=== PATIENT | male | born 1960 | race Two or more races ===

== ENCOUNTER 2018-07-09 22:56 | Emergency (ER) | payer BC ==
[~2018-07-09] VITALS: Ht 167.6 cm; Wt 132.4 kg
[2018-07-09 23:31] LABS: Basophils # (auto) 0.1 uL; Basophils % (auto) 0.8 % (0.0-2.0); Eosinophils # (auto) 0.1 uL; Eosinophils % (auto) 1.8 % (0.0-7.0); Hematocrit 40.9 % (41.0-53.0); Hemoglobin 14.1 g/dL (13.5-17.5); Lymphocytes # (auto) 1.7 uL; Lymphocytes % (auto) 23.7 % (10.0-50.0); Mean Corpuscular Hemoglobin 30.8 pg (28.0-32.0); Mean Corpuscular Hgb Conc. 34.4 g/dL (32.0-36.0); Mean Corpuscular Volume 89.7 fL (80.0-100.0); Monocytes # (auto) 0.5 uL; Monocytes % (auto) 7.2 % (0.0-12.0); Neutrophils # (auto) 4.8 uL; Neutrophils % (auto) 66.5 % (37.0-80.0); Platelet Count (auto) 186 10^3/uL (140-450); Red Blood Cells 4.57 10^6/uL (4.5-5.90); Red Cell Distribution Width 13.6 % (11.8-14.3); White Blood Cell 7.3 10^3/uL (4.4-10.8)
[2018-07-10 00:01] LABS: Alanine Aminotransferase 60 U/L (16-61); Albumin 3.5 g/dL (3.4-5.0); Anion Gap 5 (5-15); Aspartate Aminotransferase 36 U/L (15-37); Blood Urea Nitrogen 18 mg/dL (7-18); Calcium 8.8 mg/dL (8.5-10.1); Carbon Dioxide 27 mmol/L (21-32); Chloride 108 mmol/L (98-107); GFR African American > 60 mL/min; GFR Non-African American > 60 mL/min; Glucose 118 mg/dL (74-106); Potassium 3.7 mmol/L (3.5-5.1); Sodium 140 mmol/L (136-145)
[2018-07-10 00:04] LABS: Alkaline Phosphatase 149 U/L (45-117); Bilirubin, Total 0.5 mg/dL (0.2-1.0); Total Protein 7.2 g/dL (6.4-8.2)
[2018-07-10 03:00] VITALS: BP 153/91
== END 2018-07-10 03:16 | disposition home or self-care (01) ==
LOC: ER 23:00
DX: L72.3 Sebaceous cyst (principal); E11.9 Type 2 diabetes mellitus without complications
CPT/HCPCS: 36415; 74176; 80053; 83036; 85025

== ENCOUNTER → 2018-07-13 | Outpatient (CLI) | payer BC ==
[2018-07-13 13:43] LABS: Basophils # (auto) 0 uL; Basophils % (auto) 0.6 % (0.0-2.0); Eosinophils # (auto) 0.1 uL; Hematocrit 41.8 % (41.0-53.0); Hemoglobin 14.5 g/dL (13.5-17.5); Lymphocytes # (auto) 1.5 uL; Lymphocytes % (auto) 21.4 % (10.0-50.0); Mean Corpuscular Hemoglobin 31.2 pg (28.0-32.0); Mean Corpuscular Hgb Conc. 34.7 g/dL (32.0-36.0); Mean Corpuscular Volume 89.8 fL (80.0-100.0); Monocytes # (auto) 0.4 uL; Monocytes % (auto) 5.7 % (0.0-12.0); Neutrophils # (auto) 4.9 uL; Neutrophils % (auto) 70.3 % (37.0-80.0); Nucleated Red Blood Cells % 0.1 %; Platelet Count (auto) 178 10^3/uL (140-450); Red Blood Cells 4.65 10^6/uL (4.5-5.90); Red Cell Distribution Width 14.1 % (11.8-14.3); White Blood Cell 6.9 10^3/uL (4.4-10.8)
[2018-07-13 14:12] LABS: Albumin 3.7 g/dL (3.4-5.0); Anion Gap 3 (5-15); Calcium 9.3 mg/dL (8.5-10.1); Carbon Dioxide 27 mmol/L (21-32); Chloride 109 mmol/L (98-107); Glucose 97 mg/dL (74-106); Potassium 3.8 mmol/L (3.5-5.1); Sodium 139 mmol/L (136-145)
[2018-07-13 14:19] LABS: Alanine Aminotransferase 64 U/L (16-61); Alkaline Phosphatase 128 U/L (45-117); Aspartate Aminotransferase 41 U/L (15-37); BUN/Creatinine Ratio 18.8; Blood Urea Nitrogen 15 mg/dL (7-18); Cholesterol 136 mg/dL (< 200); GFR African American > 60 mL/min; GFR Non-African American > 60 mL/min; HDL Cholesterol 44 mg/dL (40-59); LDL Cholesterol 81 mg/dL (< 100); Total Protein 7.5 g/dL (6.4-8.2); Triglycerides 90 mg/dL (< 150)
== END | disposition home or self-care (01) ==
LOC: LAB 13:21
PROVIDERS: ATTEND Internal Medicine
DX: L02.93 Carbuncle, unspecified (principal)
CPT/HCPCS: 36415; 80053; 80061; 83036; 84153; 84443; 85025

== ENCOUNTER → 2018-12-08 | Outpatient (CLI) | payer BC ==
[2018-12-08 13:06] LABS: Potassium 3.8 mmol/L (3.5-5.1)
[2018-12-08 13:16] LABS: Albumin 3.7 g/dL (3.4-5.0); Calcium 9.3 mg/dL (8.5-10.1); Magnesium 2.4 mg/dL (1.6-2.6)
[2018-12-08 13:27] LABS: Basophils # (auto) 0 uL; Basophils % (auto) 0.7 % (0.0-2.0); Eosinophils # (auto) 0.2 uL; Eosinophils % (auto) 2.4 % (0.0-7.0); Hematocrit 41.1 % (41.0-53.0); Hemoglobin 14.3 g/dL (13.5-17.5); Lymphocytes # (auto) 1.3 uL; Lymphocytes % (auto) 20.5 % (10.0-50.0); Mean Corpuscular Hemoglobin 31.4 pg (28.0-32.0); Mean Corpuscular Hgb Conc. 34.9 g/dL (32.0-36.0); Monocytes # (auto) 0.4 uL; Monocytes % (auto) 5.9 % (0.0-12.0); Neutrophils # (auto) 4.6 uL; Neutrophils % (auto) 70.5 % (37.0-80.0); Nucleated Red Blood Cells % 0.1 %; Platelet Count (auto) 162 10^3/uL (140-450); Red Blood Cells 4.56 10^6/uL (4.5-5.90); Red Cell Distribution Width 13.9 % (11.8-14.3); White Blood Cell 6.6 10^3/uL (4.4-10.8)
[2018-12-08 14:01] LABS: Uric Acid 4.9 mg/dL (3.5-7.2)
[2018-12-08 14:03] LABS: Bilirubin, Total 0.7 mg/dL (0.2-1.0); Total Protein 7.6 g/dL (6.4-8.2)
[2018-12-08 15:18] LABS: Urine Bacteria NONE SEEN /hpf (None Seen); Urine Blood Negative /uL (Negative); Urine Specific Gravity 1.027 (1.001-1.035); Urine WBC 1 /hpf (0 - 3)
== END | disposition home or self-care (01) ==
LOC: LAB 11:06
DX: Z00.00 Encounter for general adult medical examination without abnormal findings (principal); Z12.11 Encounter for screening for malignant neoplasm of colon; E11.29 Type 2 diabetes mellitus with other diabetic kidney complication; N39.0 Urinary tract infection, site not specified; R80.9 Proteinuria, unspecified
CPT/HCPCS: 36415; 80053; 80061; 81001; 82306; 82607; 83036; 83735; 84443; 84550; 85025

== ENCOUNTER → 2019-11-09 | Outpatient (CLI) | payer BC ==
[2019-11-09 10:22] LABS: Basophils # (auto) 0.1 10 ^3/uL (0-0.2); Basophils % (auto) 0.8 % (0.0-2.0); Eosinophils # (auto) 0.1 10 ^3/uL (0-0.8); Eosinophils % (auto) 2.2 % (0.0-7.0); Hematocrit 42.1 % (41.0-53.0); Hemoglobin 14.5 g/dL (13.5-17.5); Lymphocytes # (auto) 1.4 10 ^3/uL (0.4-5.4); Lymphocytes % (auto) 22.5 % (10.0-50.0); Mean Corpuscular Hemoglobin 31.1 pg (28.0-32.0); Mean Corpuscular Hgb Conc. 34.4 g/dL (32.0-36.0); Mean Corpuscular Volume 90.6 fL (80.0-100.0); Monocytes # (auto) 0.4 10 ^3/uL (0-1.3); Monocytes % (auto) 6.4 % (0.0-12.0); Neutrophils # (auto) 4.3 10 ^3/uL (1.6-8.6); Neutrophils % (auto) 68.1 % (37.0-80.0); Nucleated Red Blood Cells % 0.1 %; Platelet Count (auto) 162 10^3/uL (140-450); Red Blood Cells 4.65 10^6/uL (4.5-5.90); Red Cell Distribution Width 13.8 % (11.8-14.3); White Blood Cell 6.3 10^3/uL (4.4-10.8)
[2019-11-09 10:24] LABS: Urine Bacteria NONE SEEN /hpf (None Seen); Urine Blood Negative /uL (Negative); Urine Mucus FEW (None Seen); Urine Specific Gravity 1.023 (1.001-1.035); Urine WBC 4 /hpf (0 - 3)
[2019-11-09 10:48] LABS: Albumin 3.3 g/dL (3.4-5.0); Calcium 8.7 mg/dL (8.5-10.1); Potassium 3.7 mmol/L (3.5-5.1)
[2019-11-09 10:53] LABS: BUN/Creatinine Ratio 16.7; Bilirubin, Total 0.7 mg/dL (0.2-1.0); Phosphorus 2.1 mg/dL (2.5-4.90); Total Protein 7.1 g/dL (6.4-8.2); Uric Acid 4.1 mg/dL (3.5-7.2)
[2019-11-09 10:56] LABS: Free T4 (Free Thyroxine) 0.78 ng/dL (0.89-1.76); T3 Total 1.24 ng/mL (0.60-1.81)
== END | disposition home or self-care (01) ==
LOC: LAB 09:56
DX: Z12.31 Encounter for screening mammogram for malignant neoplasm of breast (principal); R53.1 Weakness; E03.9 Hypothyroidism, unspecified; N39.0 Urinary tract infection, site not specified; J44.9 Chronic obstructive pulmonary disease, unspecified; R73.09 Other abnormal glucose; D51.0 Vitamin B12 deficiency anemia due to intrinsic factor deficiency; Z13.29 Encounter for screening for other suspected endocrine disorder; Z13.228 Encounter for screening for other metabolic disorders; Z79.890 Hormone replacement therapy
CPT/HCPCS: 36415; 80053; 80061; 81001; 82607; 83036; 83540; 83615; 84100; 84439; 84443; 84480; 84481; 84550; 85025

== ENCOUNTER 2019-12-30 11:26 | Emergency (ER) | payer BC ==
[~2019-12-30] VITALS: Ht 170.2 cm; Wt 131.5 kg
[2019-12-30 11:37] VITALS: BP 126/75
== END 2019-12-30 13:27 | disposition home or self-care (01) ==
LOC: ER 11:26
DX: U07.1 COVID-19 (principal); J18.1 Lobar pneumonia, unspecified organism; I10 Essential (primary) hypertension; E11.9 Type 2 diabetes mellitus without complications
CPT/HCPCS: 71045; 87635

== ENCOUNTER 2020-01-05 22:38 | Inpatient (IN) | payer BC ==
[~2020-01-05] VITALS: Ht 170.2 cm; Wt 115.5 kg
[2020-01-05] MEDS ORDERED: DOXYCYCLINE 100MG/250ML 250 ML IV ONE (23:30)
[2020-01-05] MEDS ORDERED: methylPREDNISolone SOD SUCC 125 MG/2 ML VL IV ONE (23:30)
[2020-01-06 00:24] LABS: Basophils # (auto) 0 10 ^3/uL (0-0.2); Basophils % (auto) 0.4 % (0.0-2.0); Eosinophils # (auto) 0 10 ^3/uL (0-0.8); Eosinophils % (auto) 0.2 % (0.0-7.0); Hematocrit 43.6 % (41.0-53.0); Hemoglobin 14.9 g/dL (13.5-17.5); Lymphocytes # (auto) 0.7 10 ^3/uL (0.4-5.4); Lymphocytes % (auto) 14.4 % (10.0-50.0); Mean Corpuscular Hemoglobin 30.6 pg (28.0-32.0); Mean Corpuscular Hgb Conc. 34.2 g/dL (32.0-36.0); Mean Corpuscular Volume 89.6 fL (80.0-100.0); Monocytes # (auto) 0.3 10 ^3/uL (0-1.3); Monocytes % (auto) 5.8 % (0.0-12.0); Neutrophils # (auto) 3.8 10 ^3/uL (1.6-8.6); Neutrophils % (auto) 79.2 % (37.0-80.0); Nucleated Red Blood Cells % 0.1 %; Platelet Count (auto) 127 10^3/uL (140-450); Red Blood Cells 4.87 10^6/uL (4.5-5.90); White Blood Cell 4.8 10^3/uL (4.4-10.8)
[2020-01-06 00:40] LABS: Alanine Aminotransferase 118 U/L (16-61); Albumin 2.8 g/dL (3.4-5.0); Anion Gap 5 (5-15); Aspartate Aminotransferase 100 U/L (15-37); BUN/Creatinine Ratio 14.4; Blood Urea Nitrogen 16 mg/dL (7-18); Carbon Dioxide 27 mmol/L (21-32); Chloride 98 mmol/L (98-107); GFR African American 88 mL/min; GFR Non-African American 73 mL/min; Glucose 244 mg/dL (74-106); Magnesium 1.9 mg/dL (1.6-2.6); Potassium 3.4 mmol/L (3.5-5.1); Sodium 130 mmol/L (136-145)
[2020-01-06 00:45] LABS: Alkaline Phosphatase 77 U/L (45-117); Bilirubin, Total 0.9 mg/dL (0.2-1.0); Total Protein 7.5 g/dL (6.4-8.2)
[2020-01-06] MEDS ORDERED: SODIUM CHLORIDE 0.9% 1,000 ML IV SCH (01:24)
[2020-01-06] MEDS ORDERED: TEMAZEPAM 15 MG CAP PO PRN (01:30)
[2020-01-06] MEDS ORDERED: HYDROcodone-ACET 5/325MG TAB PO PRN (01:30)
[2020-01-06] MEDS ORDERED: ONDANSETRON HCL 4 MG/2 ML VIAL IV PRN (01:30)
[2020-01-06] MEDS ORDERED: ACETAMINOPHEN 325 MG TAB PO PRN (01:30)
[2020-01-06] MEDS ORDERED: MORPHINE SULF INJ 2 MG/ML SYRINGE 1ML IV PRN (01:30)
[2020-01-06] MEDS ORDERED: ACETAMINOPHEN 500 MG TAB PO PRN (01:30)
[2020-01-06] MEDS ORDERED: LORazepam 0.5 MG TAB PO PRN (01:30)
[2020-01-06] MEDS ORDERED: DOCUSATE SOD 100 MG CAP PO PRN (01:30)
[2020-01-06 03:00] VITALS: BP 156/90
--- NOTE | 2020-01-06 03:00 | NUR ---
Telemetry admit from [facility] admitted to Telemetry unit. Patient oriented to WOOD GARCIA, primary RN, unit, room, bed, and unit policies regarding patient care and visiting hours. Patient now on continuous telemetry monitoring, tele box # 18 and telemetry reading on arrival to unit is sinus rhythm. Patient is alert and oriented x4. Patient is on 3L NC, SPO2: 97%. Patient denies shortness of breath or pain at this time. Instructed on plan of care and to call for assistance as needed, patient verbalized understanding. Bed is locked in lowest position, side rails x 2 are up, and call light is within reach.
--- NOTE | 2020-01-06 03:55 | NUR ---
Temperature Patient's temperature is 100.6 Cooling measures initiated. Patient medicated for temperature as ordered (see eMAR).
--- NOTE | 2020-01-06 04:55 | NUR ---
Temperature Temperature is 98.8 at this time.
[2020-01-06 05:00] VITALS: BP 156/90
[2020-01-06] MEDS: ALBUTEROL SULF HFA 90MCG INH 200DOSE IN SCH ×3 (06:32→23:38)
--- NOTE | 2020-01-06 06:32 | NUR ---
Respiratory note: MDI NOT AVAILABLE. WILL CALL PHARMACY TO ORDER. PT IN NO RESPIRATORY DISTRESS.
[2020-01-06 08:08] LABS: Basophils # (auto) 0 10 ^3/uL (0-0.2); Basophils % (auto) 0.1 % (0.0-2.0); Eosinophils # (auto) 0 10 ^3/uL (0-0.8); Hematocrit 46.7 % (41.0-53.0); Hemoglobin 15.6 g/dL (13.5-17.5); Lymphocytes # (auto) 0.5 10 ^3/uL (0.4-5.4); Lymphocytes % (auto) 15.6 % (10.0-50.0); Mean Corpuscular Hemoglobin 30.8 pg (28.0-32.0); Mean Corpuscular Hgb Conc. 33.3 g/dL (32.0-36.0); Mean Corpuscular Volume 92.5 fL (80.0-100.0); Monocytes # (auto) 0.1 10 ^3/uL (0-1.3); Monocytes % (auto) 2.5 % (0.0-12.0); Neutrophils # (auto) 2.5 10 ^3/uL (1.6-8.6); Neutrophils % (auto) 81.8 % (37.0-80.0); Nucleated Red Blood Cells % 0.2 %; Platelet Count (auto) 128 10^3/uL (140-450); Red Blood Cells 5.05 10^6/uL (4.5-5.90); Red Cell Distribution Width 13.7 % (11.8-14.3); White Blood Cell 3.1 10^3/uL (4.4-10.8)
[2020-01-06 08:18] LABS: Calcium 9.3 mg/dL (8.5-10.1); Magnesium 2.4 mg/dL (1.6-2.6); Potassium 4.2 mmol/L (3.5-5.1)
[2020-01-06 08:21] LABS: BUN/Creatinine Ratio 17.3
--- NOTE | 2020-01-06 08:44 | NUR ---
PAGED MUSHROOM GROWTH MEDIA MIXER HOSPITALIST REGARDING PATIENTS CRITICAL BLOOD SUGAR. AWAITING CALL BACK.
[2020-01-06] MEDS ORDERED: METF-370 PO (08:47)
[2020-01-06] MEDS ORDERED: HYDR25TA4 PO (08:48)
[2020-01-06 09:00] VITALS: BP 135/80
[2020-01-06] MEDS ORDERED: DEXTROSE (50%) 50ML SYRG IV PRN (09:00)
[2020-01-06] MEDS ORDERED: InsuLIN REG 1unit/0.01ml Soln (100units/ml) IV ONE ×3 (09:00→18:30)
[2020-01-06] MEDS: ZINC SULFATE 220mg CAP or TAB PO SCH (09:23)
[2020-01-06] MEDS: DOXYCYCLINE 100 MG TAB/CAP PO SCH ×2 (09:23→23:39)
[2020-01-06] MEDS: ASCORBIC ACID 1,000 MG TAB PO SCH (09:23)
[2020-01-06] MEDS: CHOLECALCIFEROL (VITD3) 1,000UNIT=25mCg TAB PO SCH (09:24)
[2020-01-06 09:34] LABS: Urine WBC None Seen /hpf (0 - 3)
[2020-01-06 09:53] LABS: Urine Bacteria NONE SEEN /hpf (None Seen); Urine Blood TRACE /uL (Negative); Urine Mucus FEW (None Seen); Urine Specific Gravity 1.033 (1.001-1.035)
[2020-01-06] MEDS ORDERED: ENOXAPARIN SOD 40 MG/0.4 ML SYRINGE SC SCH (10:00)
[2020-01-06] MEDS: ACCU-CHEK COMFORT CURVE STRIP VI SCH ×3 (11:39→23:52)
[2020-01-06] MEDS: InsuLIN REG 1unit/0.01ml Soln (100units/ml) SC SCH ×3 (11:40→23:52)
--- NOTE | 2020-01-06 11:48 | NUR ---
REGARDING CRITICAL BLOOD SUGAR. ROSA GOTTI REGARDING CRITICAL BLOOD SUGAR. SEE EMAR FOR ORDERS.
[2020-01-06] MEDS ORDERED: INSULIN LANTUS (GLARGINE) 1 /0.01ml (100units/ml) SC ONE (12:00)
[2020-01-06] MEDS: INSULIN LANTUS (GLARGINE) 1 /0.01ml (100units/ml) SC SCH ×2 (12:12→23:54)
[2020-01-06 12:58] VITALS: BP 143/83
[2020-01-06] MEDS ORDERED: POTASSIUM CHL 20 Meq TABLET PO ONE (13:00)
[2020-01-06] MEDS ORDERED: HCTZ 25 MG TAB PO ONE (16:45)
[2020-01-06] MEDS ORDERED: cefTRIAXone 1GM/50ML D5W 50 ML IV ONE (16:45)
[2020-01-06] MEDS ORDERED: FUROSEMIDE 20 MG/2 ML VIAL IV ONE (16:45)
[2020-01-06 17:00] VITALS: BP 160/87
--- NOTE | 2020-01-06 17:46 | NUR ---
PAGED LINEN ROOM WORKER HOSPITALIST REGARDING BLOOD SUGAR OF [id number]. AWAITING CALL BACK.
--- NOTE | 2020-01-06 18:21 | NUR ---
REPAGE: REPAGED DRIVERS LICENSE EXAMINER HOSPITALIST REGARDING BLOOD SUGAR.
--- NOTE | 2020-01-06 20:00 | NUR ---
Opening Shift Note Assumed care of patient, awake and alert x4. Patient denies shortness of breath or pain at this time. Instructed on plan of care and encouraged patient to call for assistance as needed. Incentive spirometer noted at the bedside, encouraged patient to use incentive spirometer at least times while awake, patient verbalized understanding. Bed is locked in lowest position, side rails x 2 are up, and call light is within reach.
[2020-01-06] MEDS: cefTRIAXone 1GM/50ML D5W 50 ML IV SCH (21:00)
[2020-01-06] MEDS: BUDESONIDE (INHALATION) 180 MCG IH IN SCH (22:00)
[2020-01-06] MEDS ORDERED: INSULIN LANTUS (GLARGINE) 1 /0.01ml (100units/ml) SC SCH (22:00)
[2020-01-06 23:05] VITALS: BP 115/67
[2020-01-06] MEDS: DexAMETHasone SOD PHOS 10MG/1ML VIAL INJ IV SCH (23:39)
[2020-01-06] MEDS: ENOXAPARIN SOD 80 MG/0.8ML SYRINGE SC SCH (23:40)
[2020-01-07 05:18] LABS: Basophils # (auto) 0.1 10 ^3/uL (0-0.2); Basophils % (auto) 0.8 % (0.0-2.0); Eosinophils # (auto) 0 10 ^3/uL (0-0.8); Hematocrit 41.8 % (41.0-53.0); Hemoglobin 14.6 g/dL (13.5-17.5); Lymphocytes # (auto) 0.5 10 ^3/uL (0.4-5.4); Lymphocytes % (auto) 5.9 % (10.0-50.0); Mean Corpuscular Volume 88.6 fL (80.0-100.0); Monocytes # (auto) 0.3 10 ^3/uL (0-1.3); Monocytes % (auto) 4.2 % (0.0-12.0); Neutrophils # (auto) 6.9 10 ^3/uL (1.6-8.6); Neutrophils % (auto) 89.1 % (37.0-80.0); Platelet Count (auto) 156 10^3/uL (140-450); Red Blood Cells 4.71 10^6/uL (4.5-5.90); Red Cell Distribution Width 13.2 % (11.8-14.3); White Blood Cell 7.7 10^3/uL (4.4-10.8)
[2020-01-07 05:24] VITALS: BP 139/81
[2020-01-07 05:38] LABS: Albumin 2.5 g/dL (3.4-5.0); Calcium 9.4 mg/dL (8.5-10.1); Potassium 4.3 mmol/L (3.5-5.1)
[2020-01-07 05:46] LABS: BUN/Creatinine Ratio 24.7; Bilirubin, Total 0.5 mg/dL (0.2-1.0); CRP High Sensitivity 8.81 mg/dL (< 0.3); Total Protein 7.2 g/dL (6.4-8.2)
[2020-01-07] MEDS: ACCU-CHEK COMFORT CURVE STRIP VI SCH ×3 (05:56→17:58)
[2020-01-07] MEDS: ALBUTEROL SULF HFA 90MCG INH 200DOSE IN SCH ×3 (05:57→22:00)
[2020-01-07] MEDS: InsuLIN REG 1unit/0.01ml Soln (100units/ml) SC SCH ×3 (05:57→18:02)
[2020-01-07] MEDS: BUDESONIDE (INHALATION) 180 MCG IH IN SCH ×2 (06:00→22:00)
[2020-01-07 09:07] VITALS: BP 155/82
[2020-01-07] MEDS: cefTRIAXone 1GM/50ML D5W 50 ML IV SCH ×2 (09:34→21:00)
[2020-01-07] MEDS: POTASSIUM CHL 20 Meq TABLET PO SCH (09:36)
[2020-01-07] MEDS: CHOLECALCIFEROL (VITD3) 1,000UNIT=25mCg TAB PO SCH (09:36)
[2020-01-07] MEDS: ASCORBIC ACID 1,000 MG TAB PO SCH (09:36)
[2020-01-07] MEDS: ZINC SULFATE 220mg CAP or TAB PO SCH (09:37)
[2020-01-07] MEDS: DOXYCYCLINE 100 MG TAB/CAP PO SCH ×2 (09:37→21:41)
[2020-01-07] MEDS: HCTZ 25 MG TAB PO SCH (09:37)
[2020-01-07] MEDS: ENOXAPARIN SOD 80 MG/0.8ML SYRINGE SC SCH ×2 (09:37→21:42)
[2020-01-07] MEDS: DexAMETHasone SOD PHOS 10MG/1ML VIAL INJ IV SCH ×2 (09:38→21:42)
[2020-01-07] MEDS: FUROSEMIDE 20 MG/2 ML VIAL IV SCH (09:38)
[2020-01-07] MEDS ORDERED: amLODIPine BESYLATE 5 MG TAB PO ONE ×2 (11:15→13:00)
[2020-01-07] MEDS ORDERED: INSULIN LANTUS (GLARGINE) 1 /0.01ml (100units/ml) SC ONE (13:00)
[2020-01-07 13:15] VITALS: BP 143/80
[2020-01-07 17:36] VITALS: BP 162/79
--- NOTE | 2020-01-07 18:20 | NUR ---
DOCTOR YATES AT BEDSIDE
--- NOTE | 2020-01-07 20:15 | NUR ---
Patient is AOx4 and relaxing in bed. Was on phone talking to family member. He is currently on 2L NC with no signs of discomfort. Bed is locked in lowest position with side rails up x2. Will continue to monitor.
[2020-01-07] MEDS ORDERED: INSULIN LANTUS (GLARGINE) 1 /0.01ml (100units/ml) SC SCH (22:00)
[2020-01-07 22:44] VITALS: BP 153/86
[2020-01-08] MEDS: ACCU-CHEK COMFORT CURVE STRIP VI SCH ×4 (00:16→18:24)
[2020-01-08] MEDS: InsuLIN REG 1unit/0.01ml Soln (100units/ml) SC SCH ×4 (00:19→17:30)
[2020-01-08 05:43] VITALS: BP 131/82
[2020-01-08] MEDS: BUDESONIDE (INHALATION) 180 MCG IH IN SCH ×2 (06:36→23:49)
--- NOTE | 2020-01-08 07:25 | NUR ---
Opening Shift Note Assumed care of patient, awake and alert x4. Patient is on 2L NC, SPO2: 92% at this time. Patient denies shortness of breath or pain at this time. Instructed on plan of care and encouraged patient to call for assistance as needed. Incentive spirometer noted at the bedside, encouraged patient to use incentive spirometer at least times while awake, patient verbalized understanding. Bed is locked in lowest position, side rails x 2 are up, and call light is within reach.
[2020-01-08 09:00] VITALS: BP 135/83
[2020-01-08] MEDS: ALBUTEROL SULF HFA 90MCG INH 200DOSE IN SCH ×3 (09:08→23:49)
[2020-01-08] MEDS: cefTRIAXone 1GM/50ML D5W 50 ML IV SCH ×2 (09:39→20:52)
[2020-01-08] MEDS: POTASSIUM CHL 20 Meq TABLET PO SCH (09:39)
[2020-01-08] MEDS: DOXYCYCLINE 100 MG TAB/CAP PO SCH ×2 (09:40→21:57)
[2020-01-08] MEDS: ASCORBIC ACID 1,000 MG TAB PO SCH (09:40)
[2020-01-08] MEDS: ZINC SULFATE 220mg CAP or TAB PO SCH (09:40)
[2020-01-08] MEDS: DexAMETHasone SOD PHOS 10MG/1ML VIAL INJ IV SCH ×2 (09:40→22:01)
[2020-01-08] MEDS: FUROSEMIDE 20 MG/2 ML VIAL IV SCH (09:40)
[2020-01-08] MEDS: amLODIPine BESYLATE 5 MG TAB PO SCH (09:41)
[2020-01-08] MEDS: HCTZ 25 MG TAB PO SCH (09:41)
[2020-01-08] MEDS: CHOLECALCIFEROL (VITD3) 1,000UNIT=25mCg TAB PO SCH (09:42)
[2020-01-08] MEDS: ENOXAPARIN SOD 80 MG/0.8ML SYRINGE SC SCH ×2 (09:42→22:01)
[2020-01-08 13:00] VITALS: BP 130/72
[2020-01-08] MEDS ORDERED: InsuLIN REG 1unit/0.01ml Soln (100units/ml) IV ONE (13:45)
[2020-01-08 17:00] VITALS: BP 126/76
[2020-01-08 21:56] VITALS: BP 135/80
[2020-01-08] MEDS: INSULIN LANTUS (GLARGINE) 1 /0.01ml (100units/ml) SC SCH (22:01)
[2020-01-09] MEDS: ACCU-CHEK COMFORT CURVE STRIP VI SCH ×4 (00:33→18:00)
[2020-01-09] MEDS: InsuLIN REG 1unit/0.01ml Soln (100units/ml) SC SCH ×4 (00:35→18:00)
[2020-01-09 05:00] VITALS: BP 121/90
[2020-01-09 06:54] LABS: Basophils # (auto) 0 10 ^3/uL (0-0.2); Basophils % (auto) 0.1 % (0.0-2.0); Eosinophils # (auto) 0 10 ^3/uL (0-0.8); Hematocrit 41.3 % (41.0-53.0); Hemoglobin 14.2 g/dL (13.5-17.5); Lymphocytes # (auto) 0.5 10 ^3/uL (0.4-5.4); Lymphocytes % (auto) 7.9 % (10.0-50.0); Mean Corpuscular Hemoglobin 30.5 pg (28.0-32.0); Mean Corpuscular Hgb Conc. 34.4 g/dL (32.0-36.0); Mean Corpuscular Volume 88.6 fL (80.0-100.0); Monocytes # (auto) 0.3 10 ^3/uL (0-1.3); Monocytes % (auto) 5.5 % (0.0-12.0); Neutrophils # (auto) 5.5 10 ^3/uL (1.6-8.6); Neutrophils % (auto) 86.5 % (37.0-80.0); Platelet Count (auto) 184 10^3/uL (140-450); Red Blood Cells 4.66 10^6/uL (4.5-5.90); White Blood Cell 6.3 10^3/uL (4.4-10.8)
[2020-01-09 07:11] LABS: Potassium 4.5 mmol/L (3.5-5.1)
[2020-01-09 07:16] LABS: BUN/Creatinine Ratio 32.5; Calcium 9.9 mg/dL (8.5-10.1)
[2020-01-09] MEDS: ALBUTEROL SULF HFA 90MCG INH 200DOSE IN SCH ×2 (08:44→14:45)
[2020-01-09] MEDS: BUDESONIDE (INHALATION) 180 MCG IH IN SCH (08:44)
[2020-01-09] MEDS: cefTRIAXone 1GM/50ML D5W 50 ML IV SCH ×2 (09:00→09:44)
[2020-01-09 09:19] VITALS: BP 120/83
[2020-01-09] MEDS: DOXYCYCLINE 100 MG TAB/CAP PO SCH (09:45)
[2020-01-09] MEDS: ASCORBIC ACID 1,000 MG TAB PO SCH (09:45)
[2020-01-09] MEDS: ZINC SULFATE 220mg CAP or TAB PO SCH (09:45)
[2020-01-09] MEDS: CHOLECALCIFEROL (VITD3) 1,000UNIT=25mCg TAB PO SCH (09:45)
[2020-01-09] MEDS: POTASSIUM CHL 20 Meq TABLET PO SCH (09:45)
[2020-01-09] MEDS: HCTZ 25 MG TAB PO SCH (09:46)
[2020-01-09] MEDS: amLODIPine BESYLATE 5 MG TAB PO SCH (09:46)
[2020-01-09] MEDS: ENOXAPARIN SOD 80 MG/0.8ML SYRINGE SC SCH (09:47)
[2020-01-09] MEDS: FUROSEMIDE 20 MG/2 ML VIAL IV SCH ×2 (09:47→10:00)
[2020-01-09] MEDS: DexAMETHasone SOD PHOS 10MG/1ML VIAL INJ IV SCH (09:47)
[2020-01-09] MEDS: INSULIN LANTUS (GLARGINE) 1 /0.01ml (100units/ml) SC SCH (10:00)
[2020-01-09] MEDS ORDERED: METF-370 PO (14:13)
[2020-01-09] MEDS ORDERED: ASCO10003 PO (14:37)
[2020-01-09] MEDS ORDERED: CHOL1000 PO (14:37)
[2020-01-09] MEDS ORDERED: DOX100T PO (14:37)
[2020-01-09] MEDS ORDERED: AML5T PO (14:37)
[2020-01-09] MEDS ORDERED: GLIP10TA9 PO (14:37)
[2020-01-09] MEDS ORDERED: DEX4T PO (14:40)
[2020-01-09] MEDS ORDERED: PANT40TA2 PO (14:41)
[2020-01-09] MEDS ORDERED: ALBUAER3 IN (14:43)
--- NOTE | 2020-01-09 15:39 | NUR ---
Assessment Patient is a 59- year-old male who is alert and oriented. Prior to admission patient lived home with family and function independently. Per patient he can care for his own ADLs. Per patient he does not have any medical equipment now. Per patient he will return to his prior living arrangements post discharge and family will transport her home. Patient PCP Dr. Wilkerson. Advise patient there is a social service consult for home oxygen. Informed patient clinical information will be faxed to [facility]. Advised patient to follow up with his primary doctor. Informed patient he has the right to participate in all discharge planning. Patient verbalized understanding and agreed to discharge plan. Faxed clinical information to [facility] requesting to deliver portable oxygen to [facility]. Faxed clinical information to AMADO Castillo with patient health plan. Received a follow up called from Jose Eduardo with [facility] advising me portable oxygen will be deliver to [facility] between 14:00-16:00. Informed MILAN Osborn. Addendum: 01/09/20 at 1549 by SRIDHAR BARRAGAN Amended: Links added.
--- NOTE | 2020-01-09 16:03 | NUR ---
Nutrition Assessment Notes Please refer to link for full assessment notes. Est Energy needs: 2639-6451 kcals (12-15 kcal/kgBW) Est Protein needs: 135-168 gms/day (2.0-2.5 gm/kgIBW) Will continue to monitor and reassess prn. Addendum: 01/09/20 at [address] Amended: Links added.
[2020-01-09 16:04] VITALS: BP 129/79
--- NOTE | 2020-01-09 17:10 | NUR ---
Discharge instructions given as ordered. Encourage to follow up with PMD as instructed. All questions and concerns addressed. Patient verbalized understanding. IV removed with catheter intact, pressure dressing applied. Telemetry unit returned to ICU. Patient taken to vehicle via wheelchair with all personal belongings, accompanied by staff and family member. No distress noted at time of departure.
== END 2020-01-09 17:10 | disposition home or self-care (01) | DRG 871 ==
LOC: ER 22:38 → TELE-EAST 22:39
PROVIDERS: ADMIT Hospitalist; ATTEND Internal Medicine Nephrology
DX: A41.89 Other specified sepsis (principal); J12.89 Other viral pneumonia; J96.01 Acute respiratory failure with hypoxia; U07.1 COVID-19; E66.01 Morbid (severe) obesity due to excess calories; I10 Essential (primary) hypertension; R74.0 Nonspecific elevation of levels of transaminase and lactic acid dehydrogenase [LDH]; R65.20 Severe sepsis without septic shock; Z82.49 Family history of ischemic heart disease and other diseases of the circulatory system; Z83.3 Family history of diabetes mellitus; Z79.84 Long term (current) use of oral hypoglycemic drugs; Z79.899 Other long term (current) drug therapy; Z68.39 Body mass index [BMI] 39.0-39.9, adult
CPT/HCPCS: 36415; 71045; 80048; 80053; 80061; 81001; 82728; 82962; 83036; 83605; 83735; 83880; 84439; 84443; 84484; 85025; 85379; 86141; 87040; 87081; 94640; 96365; 96366; 96375; G0378; J0696; J1100; J1815; J3490

== ENCOUNTER 2020-10-05 09:36 | Emergency (ER) | payer BC ==
[~2020-10-05] VITALS: Ht 167.6 cm; Wt 131.5 kg
[~2020-10-05 09:36] MED LIST: ALBUAER3 IN; AML5T PO; ASCO10003 PO; CHOL1000 PO; DEX4T PO; DOX100T PO; HYDR25TA4 PO; METF-370 PO; PANT40TA2 PO
[2020-10-05 09:39] VITALS: BP 144/93
== END 2020-10-05 10:10 | disposition home or self-care (01) ==
LOC: ER 09:36
DX: Z01.84 Encounter for antibody response examination (principal); Z20.822 Contact with and (suspected) exposure to COVID-19; E11.9 Type 2 diabetes mellitus without complications; I10 Essential (primary) hypertension; Z79.899 Other long term (current) drug therapy
CPT/HCPCS: 99283; C9803; U0003

== ENCOUNTER → 2020-11-27 | Outpatient (CLI) | payer BC ==
[~2020-11-27] MED LIST changes: -CHOL1000 PO; +CHOL1TAB30 PO
[2020-11-27 09:39] LABS: Basophils # (auto) 0.1 10 ^3/uL (0-0.2); Eosinophils # (auto) 0.1 10 ^3/uL (0-0.8); Eosinophils % (auto) 1.6 % (0.0-7.0); Hematocrit 39.3 % (41.0-53.0); Hemoglobin 14.3 g/dL (13.5-17.5); Lymphocytes # (auto) 1.7 10 ^3/uL (0.4-5.4); Lymphocytes % (auto) 24.9 % (10.0-50.0); Mean Corpuscular Hemoglobin 32.2 pg (28.0-32.0); Mean Corpuscular Hgb Conc. 36.3 g/dL (32.0-36.0); Mean Corpuscular Volume 88.6 fL (80.0-100.0); Monocytes # (auto) 0.4 10 ^3/uL (0-1.3); Monocytes % (auto) 6.4 % (0.0-12.0); Neutrophils # (auto) 4.4 10 ^3/uL (1.6-8.6); Neutrophils % (auto) 66.1 % (37.0-80.0); Nucleated Red Blood Cells % 0.1 %; Platelet Count (auto) 191 10^3/uL (140-450); Red Blood Cells 4.44 10^6/uL (4.5-5.90); Red Cell Distribution Width 14.1 % (11.8-14.3); White Blood Cell 6.7 10^3/uL (4.4-10.8)
[2020-11-27 09:44] LABS: Urine Bacteria NONE SEEN /hpf (None Seen); Urine Blood Negative /uL (Negative); Urine Mucus FEW (None Seen); Urine Specific Gravity 1.019 (1.001-1.035); Urine WBC 3 /hpf (0 - 3)
[2020-11-27 10:53] LABS: Potassium 3.6 mmol/L (3.5-5.1)
[2020-11-27 11:01] LABS: Prostate Specific Antigen 2.1 ng/mL (0.0-4.0)
[2020-11-27 11:11] LABS: Albumin 3.5 g/dL (3.4-5.0); Bilirubin, Total 0.8 mg/dL (0.2-1.0); CRP High Sensitivity 0.65 mg/dL (< 0.3); Calcium 9.3 mg/dL (8.5-10.1); Total Protein 7.4 g/dL (6.4-8.2); Uric Acid 3.8 mg/dL (3.5-7.2)
== END | disposition home or self-care (01) ==
LOC: LAB 09:16
PROVIDERS: ATTEND Family Medicine
DX: Z00.00 Encounter for general adult medical examination without abnormal findings (principal); E61.2 Magnesium deficiency; D51.0 Vitamin B12 deficiency anemia due to intrinsic factor deficiency; R73.09 Other abnormal glucose; R79.89 Other specified abnormal findings of blood chemistry; R68.89 Other general symptoms and signs; R97.20 Elevated prostate specific antigen [PSA]; R94.6 Abnormal results of thyroid function studies; R82.991 Hypocitraturia; Z79.899 Other long term (current) drug therapy
CPT/HCPCS: 36415; 80053; 80061; 81001; 82306; 82607; 83036; 83880; 84153; 84443; 84550; 85025; 86141

== ENCOUNTER → 2021-01-29 | Day surgery (SDC) | payer BC ==
[2021-01-27 09:25] LABS: Urine WBC None Seen /hpf (0 - 3)
[2021-01-27 09:32] LABS: Basophils # (auto) 0.1 10 ^3/uL (0-0.2); Basophils % (auto) 0.8 % (0.0-2.0); Eosinophils # (auto) 0.1 10 ^3/uL (0-0.8); Eosinophils % (auto) 1.4 % (0.0-7.0); Hematocrit 42.7 % (41.0-53.0); Mean Corpuscular Hemoglobin 30.9 pg (28.0-32.0); Mean Corpuscular Volume 88.3 fL (80.0-100.0); Monocytes # (auto) 0.6 10 ^3/uL (0-1.3); Monocytes % (auto) 6.9 % (0.0-12.0); Neutrophils # (auto) 5.3 10 ^3/uL (1.6-8.6); Neutrophils % (auto) 65.9 % (37.0-80.0); Nucleated Red Blood Cells % 0.1 %; Red Blood Cells 4.83 10^6/uL (4.5-5.90); Red Cell Distribution Width 13.7 % (11.8-14.3); White Blood Cell 8.1 10^3/uL (4.4-10.8)
[2021-01-27 09:45] LABS: Urine Bacteria NONE SEEN /hpf (None Seen); Urine Blood Negative /uL (Negative); Urine Specific Gravity 1.011 (1.001-1.035)
[2021-01-27 09:56] LABS: Albumin 3.6 g/dL (3.4-5.0); Calcium 9.8 mg/dL (8.5-10.1); Potassium 4.1 mmol/L (3.5-5.1)
[2021-01-27 10:00] LABS: BUN/Creatinine Ratio 18.4; Bilirubin, Total 0.7 mg/dL (0.2-1.0); Total Protein 7.8 g/dL (6.4-8.2)
[~2021-01-29] VITALS: Ht 167.6 cm; Wt 131.5 kg
[~2021-01-29] MED LIST changes: +BUPIVACAINE 0.5% P/F INJ 10 ML VIAL ONE; +DexAMETHasone SOD PHOS 10MG/1ML VIAL INJ ONE; +FURO20TA3 PO; +GLIP10TA9 PO; +LIDOCAINE W/ EPINEPHRINE 1% 20ML VIAL ONE; +MIDAZOLAM HCL 2MG/2ML 2ml VIAL (1mg/ml) ONE; +NEOMYCIN-BACITRACIN-POLYM 15GM TOP OINT TOP ONE; +TETRACAINE 1% INJ 2 ML VIAL IJ ONE; +ceFAZolin 1GM/50ML 100 ML IV ONE; +diphenhdrAMINE HCL 50 MG/1 ML VL ONE; +fentaNYL CITRATE 100 MCG/2 ML VL ONE
[2021-01-29 12:30] VITALS: BP 139/85
== END | disposition home or self-care (01) ==
LOC: SUR 09:18
PROVIDERS: ATTEND Urology
DX: N47.1 Phimosis (principal); N40.0 Benign prostatic hyperplasia without lower urinary tract symptoms; E11.9 Type 2 diabetes mellitus without complications; N35.919 Unspecified urethral stricture, male, unspecified site; I10 Essential (primary) hypertension; E66.01 Morbid (severe) obesity due to excess calories; G47.33 Obstructive sleep apnea (adult) (pediatric); Z98.890 Other specified postprocedural states; Z79.899 Other long term (current) drug therapy; Z68.42 Body mass index [BMI] 45.0-49.9, adult; Z87.440 Personal history of urinary (tract) infections
CPT/HCPCS: 36415; 52000; 54161; 80053; 81001; 82962; 85025; J0690; J1100; J1200; J2250; J3010; J3490; U0003

== ENCOUNTER → 2021-05-29 | Outpatient (CLI) | payer BC ==
[~2021-05-29] MED LIST changes: -BUPIVACAINE 0.5% P/F INJ 10 ML VIAL ONE; -DexAMETHasone SOD PHOS 10MG/1ML VIAL INJ ONE; -LIDOCAINE W/ EPINEPHRINE 1% 20ML VIAL ONE; -MIDAZOLAM HCL 2MG/2ML 2ml VIAL (1mg/ml) ONE; -NEOMYCIN-BACITRACIN-POLYM 15GM TOP OINT TOP ONE; -TETRACAINE 1% INJ 2 ML VIAL IJ ONE; -ceFAZolin 1GM/50ML 100 ML IV ONE; -diphenhdrAMINE HCL 50 MG/1 ML VL ONE; -fentaNYL CITRATE 100 MCG/2 ML VL ONE
[2021-05-29 10:34] LABS: Basophils # (auto) 0.1 10 ^3/uL (0-0.2); Basophils % (auto) 0.7 % (0.0-2.0); Eosinophils # (auto) 0.1 10 ^3/uL (0-0.8); Eosinophils % (auto) 1.6 % (0.0-7.0); Hematocrit 44.8 % (41.0-53.0); Hemoglobin 15.3 g/dL (13.5-17.5); Lymphocytes # (auto) 1.6 10 ^3/uL (0.4-5.4); Lymphocytes % (auto) 22.8 % (10.0-50.0); Mean Corpuscular Hemoglobin 30.1 pg (28.0-32.0); Mean Corpuscular Hgb Conc. 34.1 g/dL (32.0-36.0); Mean Corpuscular Volume 88.5 fL (80.0-100.0); Monocytes # (auto) 0.4 10 ^3/uL (0-1.3); Monocytes % (auto) 5.6 % (0.0-12.0); Neutrophils # (auto) 4.8 10 ^3/uL (1.6-8.6); Neutrophils % (auto) 69.3 % (37.0-80.0); Red Blood Cells 5.06 10^6/uL (4.5-5.90); Red Cell Distribution Width 13.4 % (11.8-14.3)
[2021-05-29 10:35] LABS: Urine Bacteria NONE SEEN /hpf (None Seen); Urine Blood Negative /uL (Negative); Urine WBC 1 /hpf (0 - 3)
[2021-05-29 11:11] LABS: BUN/Creatinine Ratio 15.5; Magnesium 2.8 mg/dL (1.6-2.6); Potassium 4.1 mmol/L (3.5-5.1); Uric Acid 3.8 mg/dL (3.5-7.2)
[2021-05-29 11:20] LABS: Prostate Specific Antigen 2.09 ng/mL (0.0-4.0)
== END | disposition home or self-care (01) ==
LOC: LAB 10:13
DX: E61.2 Magnesium deficiency (principal); E79.0 Hyperuricemia without signs of inflammatory arthritis and tophaceous disease; R94.6 Abnormal results of thyroid function studies; E55.9 Vitamin D deficiency, unspecified; R82.991 Hypocitraturia; R73.09 Other abnormal glucose; E78.49 Other hyperlipidemia; R68.89 Other general symptoms and signs; D51.9 Vitamin B12 deficiency anemia, unspecified; R82.90 Unspecified abnormal findings in urine; R82.79 Other abnormal findings on microbiological examination of urine
CPT/HCPCS: 36415; 80048; 80061; 81001; 82306; 82607; 83735; 84153; 84403; 84550; 85025; 87086

== ENCOUNTER → 2021-06-01 | Outpatient (CLI) | payer BC | END | disposition home or self-care (01) | LOC: Rad HDHVI 09:57 | PROVIDERS: ATTEND Internal Medicine Cardiovascular Disease | DX: E11.42 Type 2 diabetes mellitus with diabetic polyneuropathy (principal); E66.9 Obesity, unspecified; R60.0 Localized edema | CPT/HCPCS: 93971 ==

== ENCOUNTER → 2021-06-02 | Outpatient (CLI) | payer BC | END | disposition home or self-care (01) | LOC: Rad HDHVI 08:02 | PROVIDERS: ATTEND Internal Medicine Cardiovascular Disease | DX: I10 Essential (primary) hypertension (principal); E78.5 Hyperlipidemia, unspecified | CPT/HCPCS: 93306 ==

== ENCOUNTER → 2021-06-03 | Outpatient (CLI) | payer BC ==
[~2021-06-03] VITALS: Ht 167.6 cm; Wt 131.5 kg
== END | disposition home or self-care (01) ==
LOC: Rad HDHVI 08:27
PROVIDERS: ATTEND Internal Medicine Cardiovascular Disease
DX: I10 Essential (primary) hypertension (principal); E11.9 Type 2 diabetes mellitus without complications; E78.5 Hyperlipidemia, unspecified; Z82.49 Family history of ischemic heart disease and other diseases of the circulatory system; Z13.0 Encounter for screening for diseases of the blood and blood-forming organs and certain disorders involving the immune mechanism
CPT/HCPCS: 78452; 93017; 96374; A9500

== ENCOUNTER → 2021-12-15 | Outpatient (CLI) | payer BC ==
[2021-12-15 12:34] LABS: Basophils # (auto) 0.1 10 ^3/uL (0-0.2); Eosinophils # (auto) 0.1 10 ^3/uL (0-0.8); Eosinophils % (auto) 1.5 % (0.0-7.0); Hematocrit 43.2 % (41.0-53.0); Hemoglobin 14.8 g/dL (13.5-17.5); Lymphocytes # (auto) 1.6 10 ^3/uL (0.4-5.4); Lymphocytes % (auto) 24.6 % (10.0-50.0); Mean Corpuscular Hemoglobin 30.3 pg (28.0-32.0); Mean Corpuscular Hgb Conc. 34.2 g/dL (32.0-36.0); Mean Corpuscular Volume 88.6 fL (80.0-100.0); Monocytes # (auto) 0.4 10 ^3/uL (0-1.3); Monocytes % (auto) 5.5 % (0.0-12.0); Neutrophils # (auto) 4.4 10 ^3/uL (1.6-8.6); Neutrophils % (auto) 67.4 % (37.0-80.0); Nucleated Red Blood Cells % 0.1 %; Red Blood Cells 4.88 10^6/uL (4.5-5.90); Red Cell Distribution Width 13.7 % (11.8-14.3); White Blood Cell 6.6 10^3/uL (4.4-10.8)
[2021-12-15 12:35] LABS: Urine Bacteria FEW /hpf (None Seen); Urine Blood Negative /uL (Negative); Urine Mucus FEW (None Seen); Urine Specific Gravity 1.027 (1.001-1.035); Urine WBC 6 /hpf (0 - 3)
[2021-12-15 13:43] LABS: Magnesium 2.2 mg/dL (1.6-2.6); Prostate Specific Antigen 2.96 ng/mL (0.0-4.0); Uric Acid 4.4 mg/dL (3.5-7.2)
== END | disposition home or self-care (01) ==
LOC: LAB 12:03
DX: E11.9 Type 2 diabetes mellitus without complications (principal)
CPT/HCPCS: 36415; 80061; 81001; 82607; 83036; 83735; 84153; 84443; 84550; 85025; 87086

== ENCOUNTER 2022-07-13 05:11 | Emergency (ER) | payer BC ==
[~2022-07-13] VITALS: Ht 170.2 cm; Wt 100.0 kg
[2022-07-13 05:11] VITALS: BP 152/85
[2022-07-13 05:55] LABS: Albumin 3.4 g/dL (3.4-5.0); Calcium 8.9 mg/dL (8.5-10.1); Potassium 3.9 mmol/L (3.5-5.1)
[2022-07-13 05:57] LABS: Urine Bacteria NONE SEEN /hpf (None Seen); Urine Blood Negative /uL (Negative); Urine Specific Gravity 1.018 (1.001-1.035); Urine WBC 1 /hpf (0 - 3)
[2022-07-13 05:59] LABS: BUN/Creatinine Ratio 18.2; Bilirubin, Total 0.5 mg/dL (0.2-1.0); Total Protein 6.7 g/dL (6.4-8.2)
[2022-07-13 06:00] LABS: Basophils # (auto) 0.1 10 ^3/uL (0-0.2); Basophils % (auto) 0.9 % (0.0-2.0); Eosinophils # (auto) 0.1 10 ^3/uL (0-0.8); Eosinophils % (auto) 1.4 % (0.0-7.0); Hematocrit 43.5 % (41.0-53.0); Hemoglobin 14.6 g/dL (13.5-17.5); Lymphocytes # (auto) 1.6 10 ^3/uL (0.4-5.4); Lymphocytes % (auto) 24.6 % (10.0-50.0); Mean Corpuscular Hemoglobin 30.1 pg (28.0-32.0); Mean Corpuscular Hgb Conc. 33.6 g/dL (32.0-36.0); Mean Corpuscular Volume 89.5 fL (80.0-100.0); Monocytes # (auto) 0.4 10 ^3/uL (0-1.3); Monocytes % (auto) 5.5 % (0.0-12.0); Neutrophils # (auto) 4.5 10 ^3/uL (1.6-8.6); Neutrophils % (auto) 67.6 % (37.0-80.0); Nucleated Red Blood Cells % 0.1 %; Red Blood Cells 4.86 10^6/uL (4.5-5.90); Red Cell Distribution Width 13.7 % (11.8-14.3); White Blood Cell 6.7 10^3/uL (4.4-10.8)
== END 2022-07-13 16:48 | disposition home or self-care (01) ==
LOC: ER 05:11
DX: E11.65 Type 2 diabetes mellitus with hyperglycemia (principal); I10 Essential (primary) hypertension
CPT/HCPCS: 36415; 80053; 80061; 81001; 83036; 85025

== ENCOUNTER → 2022-07-15 | Outpatient (CLI) | payer BC ==
[2022-07-15 10:09] LABS: Basophils # (auto) 0 10 ^3/uL (0-0.2); Basophils % (auto) 0.7 % (0.0-2.0); Eosinophils # (auto) 0.1 10 ^3/uL (0-0.8); Eosinophils % (auto) 1.3 % (0.0-7.0); Hematocrit 44.7 % (41.0-53.0); Hemoglobin 15.4 g/dL (13.5-17.5); Lymphocytes # (auto) 1.8 10 ^3/uL (0.4-5.4); Lymphocytes % (auto) 27.4 % (10.0-50.0); Mean Corpuscular Hemoglobin 30.7 pg (28.0-32.0); Mean Corpuscular Hgb Conc. 34.4 g/dL (32.0-36.0); Mean Corpuscular Volume 89.2 fL (80.0-100.0); Monocytes # (auto) 0.4 10 ^3/uL (0-1.3); Monocytes % (auto) 5.7 % (0.0-12.0); Neutrophils # (auto) 4.2 10 ^3/uL (1.6-8.6); Neutrophils % (auto) 64.9 % (37.0-80.0); Nucleated Red Blood Cells % 0.2 %; Red Blood Cells 5.02 10^6/uL (4.5-5.90); Red Cell Distribution Width 13.6 % (11.8-14.3); White Blood Cell 6.5 10^3/uL (4.4-10.8)
[2022-07-15 10:27] LABS: Urine Bacteria NONE SEEN /hpf (None Seen); Urine Blood Negative /uL (Negative); Urine Mucus FEW (None Seen); Urine Specific Gravity 1.014 (1.001-1.035); Urine WBC 2 /hpf (0 - 3)
[2022-07-15 10:40] LABS: Albumin 3.7 g/dL (3.4-5.0); Calcium 9.3 mg/dL (8.5-10.1); Magnesium 1.8 mg/dL (1.6-2.6); Potassium 3.8 mmol/L (3.5-5.1)
[2022-07-15 10:47] LABS: BUN/Creatinine Ratio 15.8; Bilirubin, Total 1.1 mg/dL (0.2-1.0); Total Protein 7.2 g/dL (6.4-8.2)
[2022-07-15 10:50] LABS: Prostate Specific Antigen 1.88 ng/mL (0.0-4.0)
== END | disposition home or self-care (01) ==
LOC: LAB 09:42
PROVIDERS: ATTEND Internal Medicine
DX: R68.89 Other general symptoms and signs (principal); R73.09 Other abnormal glucose; E61.2 Magnesium deficiency; R94.6 Abnormal results of thyroid function studies; E79.0 Hyperuricemia without signs of inflammatory arthritis and tophaceous disease; R82.991 Hypocitraturia; E55.9 Vitamin D deficiency, unspecified; R82.79 Other abnormal findings on microbiological examination of urine; D51.9 Vitamin B12 deficiency anemia, unspecified; R82.90 Unspecified abnormal findings in urine; R97.20 Elevated prostate specific antigen [PSA]
CPT/HCPCS: 36415; 80053; 80061; 81001; 82306; 82607; 83036; 83735; 84153; 84443; 84550; 85025

== ENCOUNTER 2023-05-02 19:01 | Emergency (ER) | payer BC ==
[~2023-05-02] VITALS: Ht 170.2 cm; Wt 127.3 kg
[2023-05-02 19:25] VITALS: BP 146/88; PULSE 100; RESP 18; TEMP 98.3
[2023-05-02] MEDS ORDERED: cefTRIAXone SOD 1,000 MG VL IM ONE (20:30)
[2023-05-02] MEDS ORDERED: KETOROLAC TROMETH 60MG/2ML VIAL IM ONE (20:30)
[2023-05-02] MEDS ORDERED: AMOX875T4 PO ×2 (20:32)
[2023-05-02] MEDS ORDERED: ACET500T58 PO ×2 (20:33)
[2023-05-02 21:05] VITALS: O2SAT 94
[2023-05-03] MEDS ORDERED: ACET500T58 PO (18:53)
[2023-05-03] MEDS ORDERED: AMOX875T4 PO (18:53)
== END 2023-05-02 21:05 | disposition home or self-care (01) ==
LOC: ER 19:01
DX: L05.91 Pilonidal cyst without abscess (principal); E11.9 Type 2 diabetes mellitus without complications; I10 Essential (primary) hypertension; E78.5 Hyperlipidemia, unspecified
CPT/HCPCS: 96372; 99283; J0696

== ENCOUNTER 2023-07-12 19:00 | Inpatient (IN) | payer BC ==
[~2023-07-12] VITALS: Ht 170.2 cm; Wt 129.1 kg
[~2023-07-12 19:00] MED LIST changes: +ACET500T58 PO; +AMOX875T4 PO
[2023-07-12 19:57] VITALS: PULSE 122; RESP 12; O2SAT 92
[2023-07-12] MEDS ORDERED: cefTRIAXone SOD 1,000 MG VL IV ONE (20:00)
[2023-07-12] MEDS ORDERED: IBUPROFEN 800 MG TAB PO ONE (20:00)
[2023-07-12] MEDS ORDERED: SODIUM CHLORIDE 0.9% 1,000 ML IV ONE ×2 (20:00)
[2023-07-12 20:11] LABS: Basophils # (auto) 0.1 10 ^3/uL (0-0.2); Basophils % (auto) 0.7 % (0.0-2.0); Eosinophils # (auto) 0.1 10 ^3/uL (0-0.8); Eosinophils % (auto) 0.7 % (0.0-7.0); Hematocrit 44.4 % (41.0-53.0); Hemoglobin 14.9 g/dL (13.5-17.5); Lymphocytes # (auto) 0.8 10 ^3/uL (0.4-5.4); Lymphocytes % (auto) 7.8 % (10.0-50.0); Mean Corpuscular Hemoglobin 30.2 pg (28.0-32.0); Mean Corpuscular Hgb Conc. 33.6 g/dL (32.0-36.0); Mean Corpuscular Volume 89.9 fL (80.0-100.0); Monocytes # (auto) 0.7 10 ^3/uL (0-1.3); Monocytes % (auto) 6.7 % (0.0-12.0); Neutrophils # (auto) 9.2 10 ^3/uL (1.6-8.6); Neutrophils % (auto) 84.1 % (37.0-80.0); Nucleated Red Blood Cells % 0.1 %; Red Blood Cells 4.94 10^6/uL (4.5-5.90); Red Cell Distribution Width 13.5 % (11.8-14.3); White Blood Cell 10.9 10^3/uL (4.4-10.8)
[2023-07-12 20:28] LABS: Alanine Aminotransferase 27 U/L (7-40); Alkaline Phosphatase 141 U/L (46-116); Anion Gap 5 (5-15); Aspartate Aminotransferase 29 U/L (13-40); BUN/Creatinine Ratio 14.6 (10.0-20.0); Blood Urea Nitrogen 18 mg/dL (9-23); Calcium 9.7 mg/dL (8.7-10.4); Carbon Dioxide 25 mmol/L (20-30); Chloride 102 mmol/L (98-107); Glucose 363 mg/dL (74-106); Potassium 5.1 mmol/L (3.5-5.1); Sodium 132 mmol/L (136-145)
[2023-07-12 20:29] LABS: Albumin 4.3 g/dL (3.2-4.8); Bilirubin, Total 1.3 mg/dL (0.2-1.0); Total Protein 7.1 g/dL (5.7-8.2)
[2023-07-12 20:30] LABS: COVID19 ANTIGEN SOFIA FIA NEGATIVE (NEGATIVE)
[2023-07-12] MEDS ORDERED: cefTRIAXone 1GM/50ML D5W 50 ML IV ONE (20:30)
[2023-07-12 20:31] LABS: Rapid Influenza A Negative (Negative); Rapid Influenza B Negative (Negative); Urine Epithelial Cast None Seen /hpf (<5)
[2023-07-12 20:40] LABS: Urine Bacteria NONE SEEN /hpf (None Seen); Urine Blood 2+ /uL (Negative); Urine Clarity HAZY (Clear); Urine Color Yellow (Yellow); Urine Protein, UAD 1+ (Negative); Urine WBC 258 /hpf (0 - 3)
[2023-07-12] MEDS ORDERED: ALBUTEROL SULF 2.5 MG/0.5ML(0.5%) NEB SOLN NEB PRN (21:15)
[2023-07-12] MEDS ORDERED: DEXTROSE (50%) 50ML SYRG IV PRN (21:15)
[2023-07-12] MEDS ORDERED: NITROGLYCERIN 0.4 MG SL TAB SL PRN (21:15)
[2023-07-12] MEDS ORDERED: ONDANSETRON HCL 4 MG/2 ML VIAL IV PRN (21:15)
[2023-07-12] MEDS ORDERED: MORPHINE SULFATE INJ 2 MG/ml SYRG IV PRN (21:15)
[2023-07-12] MEDS ORDERED: TEMAZEPAM 15 MG CAP PO PRN (21:15)
[2023-07-12 21:23] VITALS: BP 131/68; PULSE 119; RESP 20; TEMP 100.7; O2SAT 93
[2023-07-12] MEDS: ACCU-CHEK COMFORT CURVE STRIP VI SCH (22:35)
[2023-07-12] MEDS: InsuLIN REG 1unit/0.01ml Soln (100units/ml) SC SCH (23:00)
[2023-07-12 23:30] VITALS: O2SAT 92
[2023-07-13] VITALS (9 sets, daily range): BP systolic 110–163; BP diastolic 69–100; PULSE 74–101; RESP 18–20; TEMP 97.8–101.5; O2SAT 92–98
[2023-07-13] MEDS ORDERED: PNEUMOCOCCAL VACC POLYS 25 MCG/0.5 ML VIAL IM ONE (00:45)
[2023-07-13 05:19] LABS: Basophils # (auto) 0 10 ^3/uL (0-0.2); Basophils % (auto) 0.5 % (0.0-2.0); Eosinophils # (auto) 0.1 10 ^3/uL (0-0.8); Eosinophils % (auto) 1.9 % (0.0-7.0); Hematocrit 39.8 % (41.0-53.0); Hemoglobin 13.6 g/dL (13.5-17.5); Lymphocytes # (auto) 1.1 10 ^3/uL (0.4-5.4); Lymphocytes % (auto) 16.7 % (10.0-50.0); Mean Corpuscular Hemoglobin 30.4 pg (28.0-32.0); Mean Corpuscular Hgb Conc. 34.2 g/dL (32.0-36.0); Mean Corpuscular Volume 88.7 fL (80.0-100.0); Monocytes # (auto) 0.6 10 ^3/uL (0-1.3); Monocytes % (auto) 9.5 % (0.0-12.0); Neutrophils # (auto) 4.6 10 ^3/uL (1.6-8.6); Neutrophils % (auto) 71.4 % (37.0-80.0); Nucleated Red Blood Cells % 0.1 %; Red Blood Cells 4.48 10^6/uL (4.5-5.90); Red Cell Distribution Width 13.4 % (11.8-14.3); White Blood Cell 6.5 10^3/uL (4.4-10.8)
[2023-07-13 05:36] LABS: Alanine Aminotransferase 18 U/L (7-40); Albumin 3.6 g/dL (3.2-4.8); Alkaline Phosphatase 102 U/L (46-116); Anion Gap 4 (5-15); Aspartate Aminotransferase 15 U/L (13-40); BUN/Creatinine Ratio 16.3 (10.0-20.0); Blood Urea Nitrogen 14 mg/dL (9-23); Calcium 9.1 mg/dL (8.5-10.1); Carbon Dioxide 26 mmol/L (20-30); Chloride 107 mmol/L (98-107); Potassium 3.7 mmol/L (3.5-5.1); Sodium 137 mmol/L (136-145); Total Protein 6.1 g/dL (5.7-8.2)
[2023-07-13 05:38] LABS: Glucose 238 mg/dL (74-106)
[2023-07-13] MEDS: InsuLIN REG 1unit/0.01ml Soln (100units/ml) SC SCH ×4 (06:20→21:25)
[2023-07-13] MEDS: ACCU-CHEK COMFORT CURVE STRIP VI SCH ×4 (06:20→21:17)
[2023-07-13] MEDS: FUROSEMIDE 20 MG TAB PO SCH (08:58)
[2023-07-13] MEDS: ASPirin 81 mg TAB PO SCH (08:58)
[2023-07-13] MEDS: hydroCHLOROthiazide 25 MG TAB PO SCH (08:59)
[2023-07-13] MEDS: cefTRIAXone 1GM/50ML D5W 50 ML IV SCH (09:00)
[2023-07-13] MEDS: LISINOPRIL 10 MG TAB PO SCH (09:00)
[2023-07-13] MEDS: ACETAMINOPHEN 325 MG TAB PO PRN ×2 (09:08→17:42)
[2023-07-13] MEDS ORDERED: METF-371 PO (12:57)
[2023-07-13] MEDS ORDERED: HYDR25TA4 PO (13:05)
[2023-07-13] MEDS ORDERED: LISI10TA34 PO (13:05)
[2023-07-13] MEDS ORDERED: ASPI-543 PO (13:10)
[2023-07-13] MEDS: glipiZIDE 5 MG TAB PO SCH (21:16)
[2023-07-13] MEDS: metFORMIN HYDROCHLORIDE 850 MG TAB PO SCH (21:17)
[2023-07-14 02:44] VITALS: O2SAT 96
[2023-07-14 05:00] VITALS: BP 106/76; PULSE 90; RESP 18; TEMP 98.1; O2SAT 97
[2023-07-14 05:31] LABS: Basophils # (auto) 0 10 ^3/uL (0-0.2); Basophils % (auto) 0.5 % (0.0-2.0); Eosinophils # (auto) 0.1 10 ^3/uL (0-0.8); Eosinophils % (auto) 1.1 % (0.0-7.0); Hematocrit 41.3 % (41.0-53.0); Hemoglobin 14.3 g/dL (13.5-17.5); Lymphocytes # (auto) 1.3 10 ^3/uL (0.4-5.4); Lymphocytes % (auto) 14.5 % (10.0-50.0); Mean Corpuscular Hemoglobin 30.8 pg (28.0-32.0); Mean Corpuscular Hgb Conc. 34.5 g/dL (32.0-36.0); Mean Corpuscular Volume 89.2 fL (80.0-100.0); Monocytes # (auto) 0.8 10 ^3/uL (0-1.3); Monocytes % (auto) 9.6 % (0.0-12.0); Neutrophils # (auto) 6.5 10 ^3/uL (1.6-8.6); Neutrophils % (auto) 74.3 % (37.0-80.0); Red Blood Cells 4.64 10^6/uL (4.5-5.90); Red Cell Distribution Width 13.1 % (11.8-14.3); White Blood Cell 8.7 10^3/uL (4.4-10.8)
[2023-07-14 05:49] LABS: Alanine Aminotransferase 22 U/L (7-40); Albumin 3.8 g/dL (3.2-4.8); Alkaline Phosphatase 97 U/L (46-116); Anion Gap 6 (5-15); Aspartate Aminotransferase 25 U/L (13-40); BUN/Creatinine Ratio 11.4 (10.0-20.0); Blood Urea Nitrogen 9 mg/dL (9-23); Calcium 9.6 mg/dL (8.5-10.1); Carbon Dioxide 26 mmol/L (20-30); Chloride 101 mmol/L (98-107); Glucose 178 mg/dL (74-106); Potassium 3.9 mmol/L (3.5-5.1); Sodium 133 mmol/L (136-145)
[2023-07-14 05:50] LABS: Bilirubin, Total 0.8 mg/dL (0.2-1.0); Total Protein 6.7 g/dL (5.7-8.2)
[2023-07-14] MEDS: ACCU-CHEK COMFORT CURVE STRIP VI SCH ×2 (06:19→11:44)
[2023-07-14] MEDS: InsuLIN REG 1unit/0.01ml Soln (100units/ml) SC SCH ×2 (06:20→11:44)
[2023-07-14 06:34] VITALS: O2SAT 94
[2023-07-14 08:00] VITALS: PULSE 94; RESP 20
[2023-07-14 08:34] LABS: Hepatitis B Surface Antigen Negative (Negative)
[2023-07-14 08:55] LABS: Hepatitis C Antibody Negative (Negative)
[2023-07-14] MEDS: metFORMIN HYDROCHLORIDE 850 MG TAB PO SCH (09:12)
[2023-07-14] MEDS: cefTRIAXone 1GM/50ML D5W 50 ML IV SCH (09:12)
[2023-07-14] MEDS: ASPirin 81 mg TAB PO SCH (09:12)
[2023-07-14] MEDS: LISINOPRIL 10 MG TAB PO SCH (09:13)
[2023-07-14] MEDS: hydroCHLOROthiazide 25 MG TAB PO SCH (09:13)
[2023-07-14] MEDS: FUROSEMIDE 20 MG TAB PO SCH (09:13)
[2023-07-14] MEDS: glipiZIDE 5 MG TAB PO SCH (09:14)
[2023-07-14] MEDS ORDERED: SULF400T11 PO (09:45)
[2023-07-14 11:23] VITALS: BP 119/69; PULSE 94; RESP 18; TEMP 36.7; O2SAT 95
== END 2023-07-14 13:15 | disposition home or self-care (01) | DRG 872 ==
LOC: ER 19:00 → TELE 21:12 → TELE-WESTW 23:41
PROVIDERS: ADMIT Internal Medicine Pulmonary Disease; ATTEND Internal Medicine Pulmonary Disease
DX: A41.9 Sepsis, unspecified organism (principal); N39.0 Urinary tract infection, site not specified; Z68.41 Body mass index [BMI] 40.0-44.9, adult; E66.01 Morbid (severe) obesity due to excess calories; E11.9 Type 2 diabetes mellitus without complications; I10 Essential (primary) hypertension; Z20.822 Contact with and (suspected) exposure to COVID-19; R32 Unspecified urinary incontinence
CPT/HCPCS: 36415; 71045; 80053; 81001; 82962; 83605; 85025; 86803; 87040; 87086; 87340; 87426; 87804; 93005; 99291; G0378; J1815

== ENCOUNTER → 2023-12-06 | Outpatient (CLI) | payer BC ==
[~2023-12-06] MED LIST changes: -ALBUAER3 IN; -AML5T PO; -AMOX875T4 PO; -ASCO10003 PO; +ASPI-543 PO; -DEX4T PO; -DOX100T PO; +LISI10TA34 PO; -METF-370 PO; +METF-371 PO; -PANT40TA2 PO; +SULF400T11 PO
[2023-12-06 07:30] LABS: Basophils # (auto) 0 10 ^3/uL (0-0.2); Basophils % (auto) 0.4 % (0.0-2.0); Eosinophils # (auto) 0.1 10 ^3/uL (0-0.8); Hematocrit 39.8 % (41.0-53.0); Lymphocytes # (auto) 1.8 10 ^3/uL (0.4-5.4); Mean Corpuscular Hgb Conc. 35.1 g/dL (32.0-36.0); Mean Corpuscular Volume 88.3 fL (80.0-100.0); Monocytes # (auto) 0.6 10 ^3/uL (0-1.3); Neutrophils % (auto) 75.6 % (37.0-80.0); Red Blood Cells 4.51 10^6/uL (4.5-5.90); Red Cell Distribution Width 13.8 % (11.8-14.3); White Blood Cell 10.7 10^3/uL (4.4-10.8)
[2023-12-06 07:58] LABS: Urine Blood Negative /uL (Negative); Urine Clarity Clear (Clear); Urine Color Yellow (Yellow); Urine Protein, UAD 1+ (Negative); Urine Specific Gravity 1.016 (1.001-1.035); Urine Urobilinogen Normal (Negative); Urine pH 6.5 (5.0-9.0)
[2023-12-06 08:30] LABS: Alanine Aminotransferase 21 U/L (7-40); Albumin 4.2 g/dL (3.2-4.8); Alkaline Phosphatase 107 U/L (46-116); Anion Gap 5 (5-15); Aspartate Aminotransferase 16 U/L (13-40); BUN/Creatinine Ratio 11.8 (10.0-20.0); Blood Urea Nitrogen 8 mg/dL (9-23); Calcium 9.9 mg/dL (8.5-10.1); Carbon Dioxide 26 mmol/L (20-30); Chloride 102 mmol/L (98-107); Cholesterol 105 mg/dL (< 200); Glucose 190 mg/dL (74-106); HDL Cholesterol 42 mg/dL (40-59); LDL Cholesterol 45 mg/dL (< 100); Potassium 3.6 mmol/L (3.5-5.1); Sodium 133 mmol/L (136-145); Triglycerides 82 mg/dL (< 150)
[2023-12-06 08:31] LABS: Bilirubin, Total 1.2 mg/dL (0.2-1.0); Total Protein 7.5 g/dL (5.7-8.2)
[2023-12-07 08:06] LABS: PSA Free 0.92 ng/mL; Prostate Specific Antigen 4.8 ng/mL (0.0-4.0)
== END | disposition home or self-care (01) ==
LOC: LAB 07:14
PROVIDERS: ATTEND Nurse Practitioner
DX: Z12.5 Encounter for screening for malignant neoplasm of prostate (principal); I10 Essential (primary) hypertension; E11.9 Type 2 diabetes mellitus without complications; E78.5 Hyperlipidemia, unspecified
CPT/HCPCS: 36415; 80053; 80061; 81003; 82043; 83036; 84153; 84154; 84443; 85025

== ENCOUNTER → 2024-01-02 | Outpatient (CLI) | payer BC ==
[2024-01-02 10:59] LABS: Alanine Aminotransferase 29 U/L (7-40); Albumin 4.1 g/dL (3.2-4.8); Alkaline Phosphatase 156 U/L (46-116); Anion Gap 6 (5-15); Aspartate Aminotransferase 15 U/L (13-40); BUN/Creatinine Ratio 13.2 (10.0-20.0); Blood Urea Nitrogen 10 mg/dL (9-23); Calcium 10.7 mg/dL (8.7-10.4); Carbon Dioxide 26 mmol/L (20-30); Chloride 102 mmol/L (98-107); Glucose 362 mg/dL (74-106); Potassium 3.9 mmol/L (3.5-5.1); Sodium 134 mmol/L (136-145)
== END | disposition home or self-care (01) ==
LOC: LAB 09:45
PROVIDERS: ATTEND Nurse Practitioner
DX: E78.5 Hyperlipidemia, unspecified (principal); R73.9 Hyperglycemia, unspecified
CPT/HCPCS: 36415; 80053; 83036; 84153

== ENCOUNTER → 2024-01-03 | Outpatient (CLI) | payer BC | END | disposition home or self-care (01) | LOC: XY 10:10 | PROVIDERS: ATTEND Nurse Practitioner | DX: R42 Dizziness and giddiness (principal) | CPT/HCPCS: 93886 ==

== ENCOUNTER → 2024-10-22 | Outpatient (CLI) | payer BC ==
[2024-10-22 08:46] LABS: Basophils # (auto) 0.1 10 ^3/uL (0-0.2); Eosinophils # (auto) 0.2 10 ^3/uL (0-0.8); Eosinophils % (auto) 2.9 % (0.0-7.0); Hematocrit 45.1 % (41.0-53.0); Hemoglobin 15.7 g/dL (13.5-17.5); Lymphocytes # (auto) 1.8 10 ^3/uL (0.4-5.4); Lymphocytes % (auto) 21.5 % (10.0-50.0); Mean Corpuscular Hemoglobin 30.4 pg (28.0-32.0); Mean Corpuscular Hgb Conc. 34.7 g/dL (32.0-36.0); Mean Corpuscular Volume 87.6 fL (80.0-100.0); Monocytes # (auto) 0.4 10 ^3/uL (0-1.3); Monocytes % (auto) 5.2 % (0.0-12.0); Neutrophils # (auto) 5.8 10 ^3/uL (1.6-8.6); Neutrophils % (auto) 69.4 % (37.0-80.0); Platelet Count (auto) 211 10^3/uL (140-450); Red Blood Cells 5.16 10^6/uL (4.5-5.90); Red Cell Distribution Width 14.4 % (11.8-14.3); White Blood Cell 8.3 10^3/uL (4.4-10.8)
[2024-10-22 09:00] LABS: Urine Bacteria FEW /hpf (None Seen); Urine Blood Negative /uL (Negative); Urine Clarity Clear (Clear); Urine Color Yellow (Yellow); Urine Mucus FEW (None Seen); Urine Protein, UAD 1+ (Negative); Urine Specific Gravity 1.025 (1.001-1.035); Urine Squamous Epithelial Cell FEW /hpf (<5); Urine Urobilinogen 2 mg/dL (Negative); Urine WBC 14 /HPF (0-3); Urine pH 6.5 (5.0-9.0)
[2024-10-22 09:17] LABS: Alanine Aminotransferase 31 U/L (7-40); Albumin 4.7 g/dL (3.2-4.8); Anion Gap 9 (5-15); Aspartate Aminotransferase 24 U/L (13-40); Blood Urea Nitrogen 12 mg/dL (9-23); Carbon Dioxide 26 mmol/L (20-31); Chloride 106 mmol/L (98-107); Cholesterol 150 mg/dL (< 200); Glucose 99 mg/dL (74-106); LDL Cholesterol 89 mg/dL (< 100); Potassium 3.7 mmol/L (3.5-5.1); Sodium 141 mmol/L (136-145); Total Protein 7.9 g/dL (5.7-8.2); Triglycerides 118 mg/dL (< 150)
[2024-10-22 09:18] LABS: Alkaline Phosphatase 123 U/L (46-116); Bilirubin, Total 1.1 mg/dL (0.2-1.0); Calcium 11.2 mg/dL (8.7-10.4); HDL Cholesterol 39 mg/dL (40-59)
[2024-10-23 07:07] LABS: PSA Free 1.07 ng/mL; Prostate Specific Antigen 7.1 ng/mL (0.0-4.0)
== END | disposition home or self-care (01) ==
LOC: LAB 08:23
PROVIDERS: ATTEND Nurse Practitioner
DX: E11.9 Type 2 diabetes mellitus without complications (principal); E78.5 Hyperlipidemia, unspecified
CPT/HCPCS: 36415; 80053; 80061; 81001; 83036; 84153; 84154; 84443; 85025

== ENCOUNTER 2024-11-16 07:51 | Day surgery (SDC) | payer BC ==
[2024-11-15 09:15] LABS: Urine Bacteria None Seen /hpf (None Seen)
[2024-11-15 09:29] LABS: Basophils # (auto) 0 10 ^3/uL (0-0.2); Basophils % (auto) 0.6 % (0.0-2.0); Eosinophils # (auto) 0.3 10 ^3/uL (0-0.8); Eosinophils % (auto) 3.5 % (0.0-7.0); Hemoglobin 14.5 g/dL (13.5-17.5); Lymphocytes # (auto) 1.8 10 ^3/uL (0.4-5.4); Lymphocytes % (auto) 24.4 % (10.0-50.0); Mean Corpuscular Hemoglobin 30.6 pg (28.0-32.0); Mean Corpuscular Hgb Conc. 34.6 g/dL (32.0-36.0); Mean Corpuscular Volume 88.3 fL (80.0-100.0); Monocytes # (auto) 0.5 10 ^3/uL (0-1.3); Monocytes % (auto) 6.4 % (0.0-12.0); Neutrophils # (auto) 4.9 10 ^3/uL (1.6-8.6); Neutrophils % (auto) 65.1 % (37.0-80.0); Nucleated Red Blood Cells % 0.1 %; Platelet Count (auto) 195 10^3/uL (140-450); Red Blood Cells 4.76 10^6/uL (4.5-5.90); Red Cell Distribution Width 14.6 % (11.8-14.3); White Blood Cell 7.5 10^3/uL (4.4-10.8)
[2024-11-15 09:39] LABS: Urine Blood Negative /uL (Negative); Urine Clarity Clear (Clear); Urine Color Light-Yellow (Yellow); Urine Protein, UAD Negative (Negative); Urine Specific Gravity 1.015 (1.001-1.035); Urine Squamous Epithelial Cell FEW /hpf (<5); Urine Urobilinogen 2 mg/dL (Negative); Urine WBC 1 /HPF (0-3); Urine pH 6.5 (5.0-9.0)
[2024-11-15 09:47] LABS: INR 0.97 (0.9-1.15); Partial Thromboplastin Time 29.6 SEC (24.5-34.5); Prothrombin Time 10.3 sec (9.3-11.8)
[2024-11-15 09:49] LABS: Alanine Aminotransferase 27 U/L (7-40); Albumin 4.5 g/dL (3.2-4.8); Anion Gap 7 (5-15); Aspartate Aminotransferase 18 U/L (13-40); BUN/Creatinine Ratio 15.6 (10.0-20.0); Blood Urea Nitrogen 12 mg/dL (9-23); Carbon Dioxide 28 mmol/L (20-31); Chloride 105 mmol/L (98-107); Sodium 140 mmol/L (136-145); Total Protein 7.1 g/dL (5.7-8.2)
[2024-11-15 09:50] LABS: Alkaline Phosphatase 143 U/L (46-116); Bilirubin, Total 0.8 mg/dL (0.2-1.0); Calcium 10.8 mg/dL (8.7-10.4); Glucose 140 mg/dL (74-106)
[~2024-11-16] VITALS: Ht 170.2 cm; Wt 120.7 kg
[~2024-11-16 07:51] MED LIST changes: -ACET500T58 PO; -ASPI-543 PO; -CHOL1TAB30 PO; -FURO20TA3 PO; -HYDR25TA4 PO; -LISI10TA34 PO; -METF-371 PO; +SEMA2INJ3 SC; -SULF400T11 PO
[2024-11-16] MEDS ORDERED: CIPROFLOXACIN 400MG/200ML 200 ML IV ONE (08:13)
[2024-11-16] MEDS ORDERED: LIDOCAINE 2% (LOCAL ANESTH.) PF 5ml SDV ONE (08:30)
[2024-11-16] MEDS ORDERED: ONDANSETRON HCL 4 MG/2 ML VIAL ONE (08:30)
[2024-11-16] MEDS ORDERED: ONDANSETRON HCL 4 MG/2 ML VIAL IV ONE (08:30)
[2024-11-16] MEDS ORDERED: METOCLOPRAMIDE HCL 5MG/ml INJ 2ml VIAL IV ONE (08:30)
[2024-11-16] MEDS ORDERED: MIDAZOLAM HCL 2MG/2ML 2ml VIAL (1mg/ml) ONE (08:30)
[2024-11-16] MEDS ORDERED: HYDROmorphone HCL 2 MG/ML VL/or syr IV PRN (08:30)
[2024-11-16] MEDS ORDERED: METOCLOPRAMIDE HCL 5MG/ml INJ 2ml VIAL ONE (08:30)
[2024-11-16] MEDS ORDERED: fentaNYL CITRATE 100 MCG/2 ML VL ONE (08:30)
[2024-11-16] MEDS ORDERED: hydrALAZINE HCL 20 MG/ML VL IV PRN (08:30)
[2024-11-16] MEDS ORDERED: PROPOFOL 10 MG/ML 20 ML IV ONE (08:31)
[2024-11-16 09:46] VITALS: PULSE 76; RESP 12; TEMP 98.3; O2SAT 95
--- NOTE | 2024-11-16 09:59 | DVHNC2 ---
Procedure - OPERATIVE REPORT Pre-op. Diagnosis: LUTS ELEVATED PSA 7.1 Post-op. Diagnosis: LUTS ELEVATED PSA BPH- large median lobe Operation: Cystoscopy TRUS prostate biopsy Anesthesia: General Kerwin Mckay CRNA Indications: Patient with history of elevated PSA of 7.1. Patient also has history of lower urinary tract symptoms with hesitancy, occasional straining, incomplete bladder emptying, nocturia. Benefits and risks of procedures were discussed with the patient who understood and agreed with surgery. Details of Procedure: Patient was brought to the OR and placed in supine position in the OR table. Anesthesia was induced and patient was placed in lithotomy position. He was prepped and draped in sterile fashion. Using a 21 Fr. rigid cystoscope with a 30 degree lens we entered the urethra and in to the bladder. The prostate was found to be 5 cm with trilobar hyperplasia. Bladder mucosa showed trabeculations, but no stones, tumors or foreign body were seen. The bladder was emptied through the cystoscope sheath. At this point using an ultrasound probe with a biopsy guide we proceeded to enter the rectum. The prostate was measured as 88.88 cc. There nonspecific hypoechoic areas. . At this point we proceeded to take 12 cores samples from the prostate from the right base lateral, right base medial, right mid lateral, right mid medial, right apex lateral, right apex medial and subsequently the same areas on the left. Patient tolerated the procedure well and was transferred to recovery awake and in stable conditions. Specimens: Prostate tissue from the above areas total of 12 cores Complications: None Findings: As above Notes: Depending on prostate biopsy results we will make a final decision about LUTS/BPH management. If biopsy negative patient will benefit from Greenlight Laser Enucleation of the prostate vs. TURP. If positive for prostate cancer will discuss options with the patient. TIM FREED MD November 16, 2024 09:59
--- NOTE | 2024-11-16 10:00 | DVHDS2 ---
New Physician D'charge PN Admitting Diagnosis Admitting Diagnosis BPH and elevated PSA Discharge Diagnosis Same Operations or Procedures Cystoscopy with transrectal ultrasound-guided prostate biopsy Reason(s) For Hospitalization Surgery Treatment Plan Discharge Condition of Discharge Good Disposition Home Discharge Instructions Diet: Regular Activity: Light activity Activity comment: As tolerated Medications: Given Follow Up Care Follow Up/Referral: Follow up in two weeks for pathology results and further discussion Discharge Statement: "Patient was advised to return to the ER or call 911 if any headaches, dizziness, shortness of breath, chest pain, abdominal pain, bleeding, fevers, or worsening of medical condition. Patient was counseled about treatment plan, medications, possible side effects, patientverbalized understanding. All questions were answered to the best of my ability. This discharge took greater then 30 minutes in planning, reviewing documentation, counseling the patient, and discussing with other team members." TIM FREED MD November 16, 2024 10:00
[2024-11-16 10:35] VITALS: BP 149/95; PULSE 75; RESP 21; O2SAT 96
== END 2024-11-16 11:00 | disposition home or self-care (01) ==
LOC: SUR 07:51
PROVIDERS: ATTEND Urology
DX: N40.1 Benign prostatic hyperplasia with lower urinary tract symptoms (principal); R97.20 Elevated prostate specific antigen [PSA]; N32.89 Other specified disorders of bladder; I10 Essential (primary) hypertension; E11.9 Type 2 diabetes mellitus without complications; E66.3 Overweight; Z68.41 Body mass index [BMI] 40.0-44.9, adult; Z79.84 Long term (current) use of oral hypoglycemic drugs; Z98.890 Other specified postprocedural states
CPT/HCPCS: 36415; 52000; 55700; 55899; 76872; 80053; 81001; 82962; 85025; 85610; 85730; 87086; 88305; 88342; J0744; J2003; J2250; J2405; J2704; J2765; J3010

== ENCOUNTER 2025-01-23 03:03 | Emergency (ER) | payer BC ==
[~2025-01-23] VITALS: Ht 170.2 cm; Wt 119.0 kg
[2025-01-23 03:04] VITALS: BP 169/87; PULSE 82; RESP 20; TEMP 97.5; O2SAT 95
--- NOTE | 2025-01-23 03:23 | ED.PDOC ---
Musculoskeletal HPI Comments 64-year-old male presents to ER with complaints of back pain x1 week. Patient reports that he felt a "cracking sensation" with associated pain to right lower lumbar region 1 week ago that started while picking up a "heavy suitcase". He rates his current right lower back pain an 8/10 with radiation towards coccyx region and down posterior right leg. Patient presents to ER ambulatory on arrival, in mild distress and reports he has been taking [id number] ibuprofen and Tylenol for his pain without relief. Denies fever, numbness/tingling, abdominal pain, chest pain, extremity weakness, changes in urination/bm or any further symptoms/complaints Chief Complaint: Lower Extremity Time Seen by MD: 03:05 Primary Care Provider: UNKNOWN Reviewed Notes: Nurses Notes, Medications, Allergies Allergies: Coded Allergies: NO KNOWN ALLERGIES (Unverified , 10/05/20) Home Meds Active Scripts Methylprednisolone (Medrol Dosepak) 4 Mg Raymond, 4 MG PO UD, #21 TAB 0 Refills UAD Prov:PRIYANK ROBLERO 01/23/25 Acetaminophen W/ Codeine (Tylenol W/Cod #3) 1 Tab Tb, 1 TAB PO Q6HPRN, #10 TAB 0 Refills Prov:PRIYANK ROBLERO 01/23/25 Glipizide (Glipizide) 10 Mg Tab, 10 MG PO BID for 30 Days, #60 TAB 6 Refills Prov:DUSTY ZHAO DO 02/21/23 Reported Medications Semaglutide (Ozempic) 2 Mg/3 Ml Inj, 2 MG SC QWEEKLY, INJ 11/15/24 Information Source: Patient Mode of Arrival: Ambulatory Past Medical History PAST MEDICAL HISTORY: DM, HTN Surgical History: Denies all surgeries Family History Family History: Unknown Social History Smoker: Non-Smoker Alcohol: Occasionally Drugs: Denies Drug Use Lives In: Home Constitutional: denies: chills, diaphoresis, fatigue, fever, malaise, sweats, weakness, others EENTM: denies: blurred vision, double vision, ear bleeding, ear discharge, ear drainage, ear pain, ear ringing, eye pain, eye redness, hearing loss, mouth pain, mouth swelling, nasal discharge, nose bleeding, nose congestion, nose pain, photophobia, tearing, throat pain, throat swelling, voice changes, others Respiratory: denies: cough, hemoptysis, orthopnea, SOB at rest, shortness of breath, SOB with excertion, stridor, wheezing, others Cardiovascular: denies: chest pain, dizzy spells, diaphoresis, Dyspnea on exertion, edema, irregular heart beat, left arm pain, lightheadedness, palpitations, PND, syncope, others Gastrointestinal: denies: abdomen distended, abdominal pain, blood streaked bowels, constipated, diarrhea, dysphagia, difficulty swallowing, hematemesis, melena, nausea, poor appetite, poor fluid intake, rectal bleeding, rectal pain, vomiting, others Genitourinary: denies: burning, dysuria, flank pain, frequency, hematuria, incontinence, penile discharge, penile sore, pain, testicle pain, testicle swelling, urgency, others Neurological: denies: dizziness, fainting, headache, left sided numbness, left sided weakness, numbness, paresthesia, pre-existing deficit, right sided numbness, right sided weakness, seizure, speech problems, tingling, tremors, weakness, others Musculoskeletal: reports: others (As stated in HPI) Integumetry: denies: bruises, change in color, change in hair/nails, dryness, laceration, lesions, lumps, rash, wounds, others Allergic/Immunocompromised: denies: Difficulty Healing, Frequent Infections, Hives, Itching, others Hematologic/Lymphatic: denies: anemia, blood clots, easy bleeding, easy bruising, swollen glands, others Endocrine: denies: excessive hunger, excessive sweating, excessive thirst, excessive urination, flushing, intolerance to cold, intolerance to heat, unexplained weight gain, unexplained weight loss, others Psychiatric: denies: anxiety, bipolar disorder, depression, hopeless, panic disorder, schizophrenia, sleepless, suicidal, others Physical Exam General Appearance: Mild Distress HEENT: PERRL/EOMI Neck: Full Range of Motion, Non-Tender, Normal Respiratory: Chest Non-Tender, Lungs Clear, No Accessory Muscle Use, No Respiratory Distress, Normal Breath Sounds Cardiovascular: No Murmur, No Gallop, Regular Rate/Rhythm Breast Exam: Deferred Gastrointestinal: Non Tender, No Pulsatile Mass, Soft Genitalia: Deferred Pelvic: Deferred Rectal: Deferred Extremities: Normal capillary refill, Normal range of motion Musculoskeletal : Extremity Location: Back (TTP to right lower lumbar paraspinals and TTP centralized to coccyx noted. No skin changes noted. Steady gait appreciated) Neurologic: Alert, wheel truer II-XII nml as Tested, No Motor Deficits, No Sensory Deficits Cerebellar Function: Normal Reflexes: Normal Skin: Dry, Normal Color, Warm Peripheral Pulses: 2+ femoral (R), 2+ femoral (L), 2+ dorsalis pedis (R), 2+ dorsalis pedis (L), 2+ Radial (R), 2+ Radial (L), 2+ Brachial (R), 2+ Brachial (L) Lymphatic: No Adenopathy Was a procedure done? Was a procedure done?: No Sedation Sedation?: No Differential Diagnosis EXT Differential Diagnosis: Fracture, Dislocation, Neurovascular injury X-Ray, Labs, Meds, VS Vital Signs Date Time Temp Pulse Resp B/P (MAP) Pulse Ox O2 Delivery O2 Flow Rate FiO2 01/23/25 03:04 97.5 82 20 169/87 95 97.5 Current Medications Medications (Trade) Dose Ordered Sig/Malachi Route Start Time Stop Time Status Last Admin Ketorolac Tromethamine (Toradol Injection) 60 mg ONCE ONCE IM 01/23/25 03:15 01/23/25 03:16 DC 01/23/25 03:39 Dexamethasone Sodium Phosphate (Decadron Injection) 10 mg ONCE ONCE IM 01/23/25 03:30 01/23/25 03:31 DC 01/23/25 03:40 PATIENT: ALON HAHN GACCT: [id number]: [id number] : 1960 LOC: ER ROOM / BED: / AGE / SEX: 64 / M ADM STATUS: REG ER SERVICE 0309 ORDERING PHYSICIAN: PRIYANK ROBLERO PROCEDURE(s): LUMB2 - LUMBAR SPINE 3 VIEW REASON: Pain ORDER NUMBER(s): [id number], ACCESSION NUMBER(s): [id number] INDICATION: Pain TECHNIQUE: 2 views of the lumbar spine were obtained. COMPARISON: None FINDINGS: No evidence of vertebral fracture or compression deformity. Normal lordotic curvature without listhesis. Mild multilevel spondylosis. No acute finding of the imaged abdominal contents and osseous pelvis. IMPRESSION: 1. No acute finding of the lumbar spine. ATED BY: ELIANE URBINA MD DICTATED DATE/TIME: 01/23/25403 SIGNED BY: ELIANE URBINA MD SIGNED DATE/TIME: 01/23/25403 CC: PATIENT: ALON HAHN ACCT: [id number] UNIT: [id number] : 1960 LOC: ER ROOM / BED: / AGE / SEX: 64 / M ADM STATUS: REG ER SERVICE 8 ORDERING PHYSICIAN: PRIYANK ROBLERO PROCEDURE(s): SACCX - SACRUM AND COCCYX REASON: Pain ORDER NUMBER(s): [id number], ACCESSION NUMBER(s): [id number] INDICATION: Pain TECHNIQUE: 2 views COMPARISON: None FINDINGS: Exam is limited by lack of orthogonal view. No obvious fracture. Mild degenerative changes. Unremarkable pelvic contents. IMPRESSION: 1. No obvious sacral fracture bifrontal only assessment. ATED BY: ELIANE URBINA MD DICTATED DATE/TIME: 01/23/25402 SIGNED BY: ELIANE URBINA MD SIGNED DATE/TIME: 01/23/25402 CC: Lumbar spine x-ray reviewed Coccyx/sacrum x-ray reviewed Toradol 60 mg IM ordered Decadron 10 mg IM ordered Patient neurovascularly intact, reported improvement in symptoms and in no distress prior to discharge Advised to follow up with PCP in 1-2 days Patient verbalized understanding agreeable with current plan of care Advised to return to ER immediately if symptoms worsen Images Reviewed?: Images reviewed and evaluated by me Time of 1ST Reevaluation: 03:05 Reevaluation 1ST: N/A Patient Education/Counseling: Diagnosis, Treatment, Prognosis, Need For Follow Up Family Education/Counseling: No Family Present Departure 1 Departure Time of Disposition: 03:33 Impression: Primary Impression: Lumbar strain Qualified Codes: S39.012A - Strain of muscle, fascia and tendon of lower back, initial encounter Disposition: HOME / SELF CARE / HOMELESS Condition: Stable e-Prescriptions Methylprednisolone (Medrol Dosepak) 4 Mg Raymond 4 MG PO UD, #21 TAB 0 Refills UAD Prov: PRIYANK ROBLERO 01/23/25 Acetaminophen W/ Codeine (Tylenol W/Cod #3) 1 Tab Tb 1 TAB PO Q6HPRN, #10 TAB 0 Refills Prov: PRIYANK ROBLERO 01/23/25 Discharged With: Self Critical Care Note Critical Care Time?: No Stability Stability form required: No Heart Score Heart Score: Heart Score Response (Comments) Value History N/A 0 EKG N/A 0 Age N/A 0 Risk Factors N/A 0 Troponin N/A 0 Total 0 PRIYANK ROBLERO Jan 23, 2025 03:23
[2025-01-23] MEDS ORDERED: METH4PAK PO (03:32)
[2025-01-23] MEDS ORDERED: ACE3T PO (03:32)
[2025-01-23] MEDS: KETOROLAC TROMETH 60MG/2ML VIAL IM ONE (03:39)
--- NOTE | 2025-01-23 04:06 | DVH ---
INDICATION: Pain TECHNIQUE: 2 views of the lumbar spine were obtained. COMPARISON: None FINDINGS: No evidence of vertebral fracture or compression deformity. Normal lordotic curvature without listh esis. Mild multilevel spondylosis. No acute finding of the imaged abdominal contents and osseous pe lvis. IMPRESSION: 1. No acute finding of the lumbar spine.
--- NOTE | 2025-01-23 04:06 | DVH ---
INDICATION: Pain TECHNIQUE: 2 views COMPARISON: None FINDINGS: Exam is limited by lack of orthogonal view. No obvious fracture. Mild degenerative changes. Unrema rkable pelvic contents. IMPRESSION: 1. No obvious sacral fracture bifrontal only assessment.
== END 2025-01-23 04:41 | disposition home or self-care (01) ==
LOC: ER 03:03 → EEVIPCON 03:03 → ER 04:41
DX: S39.012A Strain of muscle, fascia and tendon of lower back, initial encounter (principal); E11.9 Type 2 diabetes mellitus without complications; I10 Essential (primary) hypertension; X58.XXXA Exposure to other specified factors, initial encounter; Y93.89 Activity, other specified; Y92.89 Other specified places as the place of occurrence of the external cause; Y99.8 Other external cause status
CPT/HCPCS: 72100; 72220; 96372; 99284; J1100; J1885

== ENCOUNTER 2025-02-04 07:07 | Outpatient (CLI) | payer BC ==
[~2025-02-04 07:07] MED LIST changes: +ACE3T PO; +METH4PAK PO
[2025-02-04 08:07] LABS: Alanine Aminotransferase 32 U/L (7-40); Albumin 4.2 g/dL (3.2-4.8); Alkaline Phosphatase 96 U/L (46-116); Anion Gap 8 (5-15); BUN/Creatinine Ratio 17.8 (10.0-20.0); Bilirubin, Total 0.6 mg/dL (0.2-1.0); Blood Urea Nitrogen 13 mg/dL (9-23); Calcium 9.5 mg/dL (8.7-10.4); Carbon Dioxide 27 mmol/L (20-31); Chloride 104 mmol/L (98-107); Cholesterol 149 mg/dL (< 200); Glucose 92 mg/dL (74-106); HDL Cholesterol 47 mg/dL (40-59); Sodium 139 mmol/L (136-145); Total Protein 6.5 g/dL (5.7-8.2); Triglycerides 132 mg/dL (< 150)
[2025-02-04 08:14] LABS: Potassium 3.5 mmol/L (3.5-5.1)
== END 2025-02-04 17:00 | disposition home or self-care (01) ==
LOC: LAB 07:07
PROVIDERS: ATTEND Nurse Practitioner
DX: E11.9 Type 2 diabetes mellitus without complications (principal)
CPT/HCPCS: 36415; 80053; 80061; 83036